=== PATIENT | female | born 1970 | race Hispanic/Latino ===

== ENCOUNTER 2018-12-12 09:41 | Emergency (ER) | payer OTHER ==
[2018-12-12] MEDS ORDERED: HYDROCODONE/APAP 5/325 MG TAB ONE ×2 (10:29→11:16)
[2018-12-12] MEDS ORDERED: TETANUS & DIPHTHERIA TOX,ADULT 0.5 ML VIAL ONE (10:42)
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
[2018-12-12] MEDS ORDERED: BACITRACIN OINTMENT 15 GM TUBE TOP SCH (11:30)
== END 2018-12-12 11:57 | disposition home or self-care (01) ==
LOC: ER 09:41
DX: T23.252A Burn of second degree of left palm, initial encounter (principal); T31.0 Burns involving less than 10% of body surface; X03.8XXA Other exposure to controlled fire, not in building or structure, initial encounter; I10 Essential (primary) hypertension; F41.9 Anxiety disorder, unspecified; Z23 Encounter for immunization
CPT/HCPCS: 90714; 99283

== ENCOUNTER 2019-03-10 10:42 | Observation (INO) | payer OTHER ==
--- OUTSIDE RECORDS SUMMARY | 2019-03-10 10:47 | XMS REPORT ---
:1970 Author Organization [facility] Address [address] [place] [address] [address] [place] [address] Care Team Providers Name Role Phone Unavailable Unavailable Unavailable Problems This patient has no known problems. Allergies, Adverse Reactions, Alerts This patient has no known allergies or adverse reactions. Medications This patient has no known medications.
[2019-03-10] MEDS ORDERED: NA CHLORIDE 0.9% 1,000 ML ONE (12:20)
[2019-03-10] MEDS ORDERED: ONDANSETRON 4 MG/2 ML VIAL ONE (12:20)
[2019-03-10 12:32] LABS: Absolute Lymphocytes (CBC) 1.6 K/uL (0.7-4.9); Absolute Monocytes 0.4 K/uL (0.1-1.3); Absolute Neutrophil 3.9 K/uL (1.8-8.0); Basophils % 1.1 % (0-1.3); Eosinophils % 1.4 % (0-4.4); Hematocrit 45.2 % (36.0-45.0); Lymphocytes % 25.9 % (15.3-44.8); MPV 8.5 fL (7.6-11.3); Monocytes % 6.8 % (3.3-12.3)
[2019-03-10 12:33] LABS: Protime INR 1.11
--- NOTE | 2019-03-10 12:41 | RAD REPORT ---
EXAM DESCRIPTION: RAD - Chest Single View - 03/10/2019 12:28 pm CLINICAL HISTORY: Chest pain COMPARISON: None. TECHNIQUE: AP portable chest image was obtained 1226 hours . FINDINGS: Lung volumes are low. No focal lung parenchymal process. No failure or volume overload. He art and vasculature are normal. No measurable pleural effusion and no pneumothorax. No acute bony abn ormality seen. No acute aortic findings suspected. IMPRESSION: No acute cardiopulmonary process.
[2019-03-10 12:46] LABS: ALT/SGPT 92 U/L (12-78); AST/SGOT 61 U/L (15-37); Albumin 4.2 g/dL (3.4-5.0); Alkaline Phosphatase 59 U/L (45-117); BUN Blood Urea Nitrogen 7 mg/dL (7-18); Bicarbonate 28 mmol/L (21-32); Bilirubin Direct 0.2 mg/dL (0-0.2); Bilirubin Total 0.8 mg/dL (0.2-1.0); Glucose Level 100 mg/dL (74-106); NT PRO-BNP 175 pg/mL (<125); Potassium 3.4 mmol/L (3.5-5.1); Sodium Level 138 mmol/L (136-145); Troponin (Emerg Dept Use Only) < 0.02 ng/mL (0.0-0.045)
--- NOTE | 2019-03-10 12:54 | RAD REPORT ---
EXAM DESCRIPTION: CT - Head Brain Wo Cont - 03/10/2019 12:44 pm CLINICAL HISTORY: Nausea, vomiting, headache COMPARISON: None. TECHNIQUE: Axial 5 mm thick images of the head were obtained without IV contrast. All CT scans are performed using dose optimization technique as appropriate and may include automated exposure control or mA/KV adjustment according to patient size. FINDINGS: No intracranial hemorrhage, mass, edema or shift of mid-line structures. No acute infarcti on changes seen. No abnormal extra-axial fluid collections. Ventricles are normal. Mastoid air cells are clear. Minimal mucosal thickening seen in a partially imaged sphenoid sinus and there minimal focus of mucosal thickening in the anterior right ethmoid air cells. Frontal sinuses a re not pneumatized. No acute bony findings. IMPRESSION: Negative non-contrast CT head examination for acute or significant intracranial finding. Minimal mucosal thickening changes in the sinuses as detailed. No air-fluid levels in the visualized paranasal sinuses.
--- NOTE | 2019-03-10 14:00 | ER ---
Nurse's Notes [facility] Name: Shaista Cottrell Age: 49 yrs Sex: Female : 1970 Arrival Date: 03/10/2019 Time: 10:46 Bed 20 Private MD: Dread Hampton S Diagnosis: Chest pain, unspecified;Vomiting;Diarrhea, unspecified Presentation: 03/10 11:14 Presenting complaint: Patient states: i haven't eaten or drink anything for 4 days; hj reports vomiting and started having diarrhea today; Friday i started headache and nasal pressure and cough; denies fever;. Transition of care: patient was not received from another setting of care. Onset of symptoms was March 10, 2019. Risk Assessment: Do you want to hurt yourself or someone else? Patient reports no desire to harm self or others. Initial Sepsis Screen: Does the patient meet any 2 criteria? No. Patient's initial sepsis screen is negative. Does the patient have a suspected source of infection? No. Patient's initial sepsis screen is negative. 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 - Social history:: Smoking status: . - Ebola Screening: : Patient denies travel to an Ebola-affected area in the 21 days before illness onset. Screenin:58 Abuse screen: Denies threats or abuse. Nutritional screening: No deficits noted. tw2 Tuberculosis screening: No symptoms or risk factors identified. Fall Risk None identified. Assessment: 12:14 General: Appears in no apparent distress. Behavior is calm, cooperative, appropriate tw2 for age. Pain: Complains of pain in abdomen and headache. Neuro: Level of Consciousness is awake, alert, obeys commands, Oriented to person, place, time, situation. Cardiovascular: Heart tones S1 S2 Patient's skin is warm and dry. Respiratory: Airway is patent Respiratory effort is even, unlabored, Respiratory pattern is regular, symmetrical, Breath sounds are clear bilaterally. GI: Abdomen is flat, Bowel sounds present X 4 quads. Reports diarrhea, intolerance of fluids, intolerance of food, nausea, vomiting. : No signs and/or symptoms were reported regarding the genitourinary system. EENT: No signs and/or symptoms were reported regarding the EENT system. Derm: No signs and/or symptoms reported regarding the dermatologic system. Musculoskeletal: Range of motion: intact in all extremities. 12:46 Reassessment: Patient appears in no apparent distress at this time. No changes from tw2 previously documented assessment. Patient and/or family updated on plan of care and expected duration. Pain level reassessed. Patient is alert, oriented x 3, equal unlabored respirations, skin warm/dry/pink. pt back from CT at this time. 13:50 Reassessment: Patient appears in no apparent distress at this time. No changes from tw2 previously documented assessment. Patient and/or family updated on plan of care and expected duration. Pain level reassessed. Patient is alert, oriented x 3, equal unlabored respirations, skin warm/dry/pink. 15:06 Reassessment: Patient appears in no apparent distress at this time. No changes from tw2 previously documented assessment. Patient and/or family updated on plan of care and expected duration. Pain level reassessed. Patient is alert, oriented x 3, equal unlabored respirations, skin warm/dry/pink. 15:49 Reassessment: Patient appears in no apparent distress at this time. No changes from tw2 previously documented assessment. Patient and/or family updated on plan of care and expected duration. Pain level reassessed. Patient is alert, oriented x 3, equal unlabored respirations, skin warm/dry/pink. Vital Signs: 11:17 BP 141 / 94; Pulse 56; Resp 18; Temp 97.8(TE); Pulse Ox 99% on R/A; Weight 72.57 kg; hj Height 5 ft. 0 in. (152.40 cm); Pain 5/10; 12:46 BP 146 / 73; Pulse 53; Resp 18; Pulse Ox 99% on R/A; tw2 13:50 BP 125 / 69; Pulse 44; Resp 17; Pulse Ox 100% on R/A; tw2 15:03 BP 141 / 75; Pulse 53; Resp 17; Pulse Ox 100% on R/A; tw2 15:47 BP 127 / 67; Pulse 58; Resp 17; Pulse Ox 98% on R/A; tw2 11:17 Body Mass Index 31.25 (72.57 kg, 152.40 cm) ED Course: 10:46 Patient arrived in ED. rg4 10:47 Dread Hampton MD is Private Physician. rg4 11:16 Triage completed. hj 11:17 Arm band placed on left wrist. hj 11:19 EKG done, by wafer fab technician. dt2 11:43 Fausto Slaughter PA is PHCP. jm 11:44 Alli Joiner MD is Attending Physician. jmm 11:44 Bed in low position. Call light in reach. monitoring coordinator on. Pulse ox on. NIBP on. tw2 11:58 Leilani Nguyen, RN is Primary Nurse. tw2 12:10 Inserted saline lock: 22 gauge in right antecubital area, using aseptic technique. tw2 Blood collected. 12:33 XRAY Chest (1 view) In Process Unspecified. EDMS 12:47 CT Head Brain wo Cont In Process Unspecified. EDMS 13:59 Norbert Nick DO is Hospitalizing Provider. [facility] 15:07 Awaiting: unsuccessful attempt to give report to floor nurse at this time. tw2 15:08 No provider procedures requiring assistance completed. Patient admitted, IV remains in tw2 place. 15:38 Awaiting: unsuccessful attempt to call report again at this time. tw2 Administered Medications: 12:11 Drug: Zofran 4 mg Route: IVP; Site: right antecubital; tw2 13:16 Follow up: Response: No adverse reaction; Nausea is decreased tw2 12:13 Drug: NS 0.9% 1000 ml Route: IV; Rate: 1 bolus; Site: right antecubital; tw2 13:28 Follow up: Response: No adverse reaction; IV Status: Completed infusion; IV Intake: tw2 1000ml 14:15 Drug: Aspirin Chewable Tablet 324 mg Route: PO; tw2 15:23 Follow up: Response: No adverse reaction tw2 Intake: 13:28 IV: 1000ml; Total: 1000ml. tw2 Outcome: 14:00 Decision to Hospitalize by Provider. jmm 15:49 Admitted to Med/surg accompanied by tech, via wheelchair, room 232, Report called to tw2 barry dee 15:49 Condition: stable 15:58 Patient left the ED. tw2 Signatures: Dispatcher [employer] EDMS Fausto Slaughter, Ramu Hugo RN RN Leilani Brown RN RN tw2 Cheri Bradley 4 Imelda Robles dt2 Corrections: (The following items were deleted from the chart) 11:19 11:17 Pulse 56bpm; Resp 18bpm; Pulse Ox 99% RA; Temp 97.8F Temporal; 72.57 kg; Height 5 hj ft. 0 in.; BMI: 31.2; Pain 5/10; hj
--- NOTE | 2019-03-10 14:01 | EDPHYS ---
Physician Documentation [facility] Name: Shaista Cottrell Age: 49 yrs Sex: Female : 1970 Arrival Date: 03/10/2019 Time: 10:46 Bed 20 Private MD: Dread Hampton S ED Physician Alli Joiner HPI: 03/10 11:55 This 49 yrs old Female presents to ER via Ambulatory with complaints of jmm Vomiting, Headache, Dizziness, Chest Pain. 11:55 The patient presents to the emergency department with nausea, vomiting, diarrhea, jmm abdominal pain. Onset: The symptoms/episode began/occurred 1 day(s) ago. Possible causes: unknown. Associated signs and symptoms: Pertinent positives: abdominal pain, chest pain. This is a 49 year old female with a history of htn that presents to the ED with complaints of chest pain beginning yesterday. Pain is episodic and last for approx 2 to 3 minutes at a time. Patient denies shortness of breath. patient also complains of sinus headache. Denies fever, denies chills. . 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 - Social history:: Smoking status: . - Ebola Screening: : Patient denies travel to an Ebola-affected area in the 21 days before illness onset. ROS: 11:55 Constitutional: Negative for fever, chills, and weight loss. jmm 11:55 Cardiovascular: Positive for chest pain. 11:55 Abdomen/GI: Positive for abdominal pain, nausea and vomiting, diarrhea. 11:55 Neuro: Positive for headache. 11:55 All other systems are negative. Exam: 11:55 Constitutional: This is a well developed, well nourished patient who is awake, alert, jmm and in no acute distress. Head/Face: atraumatic. Eyes: EOMI, no conjunctival erythema appreciated ENT: Moist Mucus Membranes Neck: Trachea midline, Supple Chest/axilla: Normal chest wall appearance and motion. Cardiovascular: Regular rate and rhythm. No edema appreciated Respiratory: Normal respirations, no respiratory distress appreciated Abdomen/GI: Non distended, soft Back: Normal ROM Skin: General appearance color normal MS/ Extremity: Moves all extremities, no obvious deformities appreciated, no edema noted to the lower extremities Neuro: Awake and alert, normal gait Psych: Behavior is normal, Mood is normal, Patient is cooperative and pleasant 11:55 ECG was reviewed by the Attending Physician. 11:55 Abdomen/GI: Bowel sounds: normal, Palpation: abdomen is soft and non-tender, in all quadrants. Vital Signs: 11:17 BP 141 / 94; Pulse 56; Resp 18; Temp 97.8(TE); Pulse Ox 99% on R/A; Weight 72.57 kg; hj Height 5 ft. 0 in. (152.40 cm); Pain 5/10; 12:46 BP 146 / 73; Pulse 53; Resp 18; Pulse Ox 99% on R/A; tw2 13:50 BP 125 / 69; Pulse 44; Resp 17; Pulse Ox 100% on R/A; tw2 15:03 BP 141 / 75; Pulse 53; Resp 17; Pulse Ox 100% on R/A; tw2 15:47 BP 127 / 67; Pulse 58; Resp 17; Pulse Ox 98% on R/A; tw2 11:17 Body Mass Index 31.25 (72.57 kg, 152.40 cm) MDM: 11:55 Patient medically screened. [facility] 13:58 Data reviewed: vital signs, nurses notes. Counseling: I had a detailed discussion with [facility] the patient and/or guardian regarding: the historical points, exam findings, and any diagnostic results supporting the discharge/admit diagnosis, lab results, radiology results, the need for further work-up and treatment in the hospital. ED course: Patient denies known ekg abnormalities. I discussed the patient with Dr. Nick whom accepted admission. . 03/10 12:01 Order name: Basic Metabolic Panel; Complete Time: 12:53 [facility] 03/10 12:01 Order name: CBC with Diff; Complete Time: 12:53 [facility] 03/10 12:01 Order name: LFT's; Complete Time: 12:53 [facility] 03/10 12:01 Order name: Magnesium; Complete Time: 12:53 [facility] 03/10 12:01 Order name: NT PRO-BNP; Complete Time: 12:53 [facility] 03/10 12:01 Order name: PT-INR; Complete Time: 12:53 [facility] 03/10 10:54 Order name: EKG; Complete Time: 10:57 ss 03/10 10:54 Order name: EKG - Nurse/Tech; Complete Time: 11:10 ss 12 12:01 Order name: Troponin (emerg Dept Use Only); Complete Time: 12:53 [facility] 03/10 12:01 Order name: XRAY Chest (1 view); Complete Time: 12:53 [facility] 03/10 12:01 Order name: CT Head Brain wo Cont; Complete Time: 12:58 [facility] 03/10 12:01 Order name: Cardiac monitoring; Complete Time: 12:04 [facility] 03/10 12:01 Order name: IV Saline Lock; Complete Time: 12:13 [facility] 03/10 12:01 Order name: Labs collected and sent; Complete Time: 12:13 [facility] 03/10 12:01 Order name: O2 Per Protocol; Complete Time: 12:04 [facility] 03/10 12:01 Order name: O2 Sat Monitoring; Complete Time: 12:04 jm EC:55 Rate is 54 beats/min. Rhythm is regular. QRS Arnot is Normal. RI interval is normal. QRS jmm interval is normal. QT interval is normal. No Q waves. T waves are Inverted in leads V1, V2, V3, V4, V5, V6. T waves are Flattened in lead aVF. No ST changes noted. Administered Medications: 12:11 Drug: Zofran 4 mg Route: IVP; Site: right antecubital; tw2 13:16 Follow up: Response: No adverse reaction; Nausea is decreased tw2 12:13 Drug: NS 0.9% 1000 ml Route: IV; Rate: 1 bolus; Site: right antecubital; tw2 13:28 Follow up: Response: No adverse reaction; IV Status: Completed infusion; IV Intake: tw2 1000ml 14:15 Drug: Aspirin Chewable Tablet 324 mg Route: PO; tw2 15:23 Follow up: Response: No adverse reaction tw2 Disposition: 19:02 Co-signature as Attending Physician, Alli Joiner MD Available for consultation at [facility] all times. . Chart complete. Chart complete. Disposition: 03/10/19 14:00 Hospitalization ordered by Norbert Nick for Observation. Preliminary diagnosis are Chest pain, unspecified, Vomiting, Diarrhea, unspecified. - Bed requested for Telemetry/MedSurg (observation). - Status is Observation. tw2 - Condition is Stable. - Problem is new. - Symptoms are unchanged. UTI on Admission? No Signatures: Dispatcher [employer] EDMS Yaritza Cleaning Joel, PA PA jmm Smirch, Shelby, RN RN ss Ramu Nails, RN RN hj Leilani Nguyen, YOUSIF RN tw2 Alli Joiner MD MD ps1 Corrections: (The following items were deleted from the chart) 14:43 14:00 Hospitalization Ordered by Norbert Nick DO for Observation. Preliminary bd diagnosis is Chest pain, unspecified; Vomiting; Diarrhea, unspecified. Bed requested for Telemetry/MedSurg (observation). Status is Observation. Condition is Stable. Problem is new. Symptoms are unchanged. UTI on Admission? No. michael 15:58 14:43 03/10/2019 14:00 Hospitalization Ordered by Norbert Nick DO for Observation. tw2 Preliminary diagnosis is Chest pain, unspecified; Vomiting; Diarrhea, unspecified. Bed requested for Telemetry/MedSurg (observation). Status is Observation. Condition is Stable. Problem is new. Symptoms are unchanged. UTI on Admission? No. bd
--- NOTE | 2019-03-10 14:04 | EKG ---
Test Date: 2019-03-10 Test Time: 11:10:16 Studio Musician: MIGUELITO MEASUREMENT RESULTS: Intervals: Rate: 54 NV: 156 QRSD: 80 QT: 430 QTc: 407 [place]: P: 21 NV: 156 QRS: -17 T: 3 INTERPRETIVE STATEMENTS: Sinus bradycardia Low voltage QRS T wave abnormality, consider anterior ischemia Abnormal ECG No previous ECG available for comparison Electronically Signed On 03-10-19 14:03:58 CDT by Jag Melendrez
[2019-03-10] MEDS ORDERED: ASPIRIN 81 MG CHEWABLE TABLET ONE (14:16)
--- NOTE | 2019-03-10 14:39 | P.HP ---
Certification for Inpatient Patient admitted to: Observation With expected LOS: <2 Midnights Patient will require the following post-hospital care: None Practitioner: I am a practitioner with admitting privileges, knowledge of patient current condition, hospital course, and medical plan of care. Services: Services provided to patient in accordance with Admission requirements found in Title 42 Section 412.3 of the Code of Federal Regulations Patient History Date of Service: 03/10/19 Primary Care Provider: Dr. Hampton Reason for admission: Nausea, vomiting, chest pain History of Present Illness: 49-year-old female presented to the emergency room with increasing nausea, vomiting and chest pain. Patient reports this all started on Friday when she start to have nausea and vomiting. She was not able to keep anything down. She reported some substernal chest pain. Pain comes and goes. It was associated with increased belching, headaches. No radiation was noted. She reports burning sensation and tightening to the mid chest area. She has not been able to take good oral intake in that time. Patient has hypertension and has not been able to take her medications over the last 2 days. She came to the ER for further evaluation. In the ER patient was evaluated. Initial troponin unremarkable. EKG showed some inverted T weighs. Hemoglobin 15.6, white count 6.1, sodium 138, potassium 3.4, creatinine 0.7 with a GFR of 88. Glucose 100. CT unremarkable except for some thickening of the sinus areas. Chest x-ray unremarkable. LFTs were elevated with an AST of 61, ALT of 92. Patient reported improvement with IV fluids. Patient without chest pain at this time. Patient was admitted for observation. Patient with heart score of 3. Patient with history of hypertension, rosacea, anxiety, and alcohol abuse. She admits taking 1-2 cups of wine daily. Family history of hypertension, diabetes. Home medications list reviewed: Yes - Past Medical/Surgical History Diabetic: No -: Hypertension -: Anxiety -: Rosacea -: Alcohol abuse -: Hysterectomy -: Tonsillectomy Psychosocial/ Personal History: Patient is single. She has children. She works at a local [employer]. - Family History Mother -: Heart disease, Diabetes - Social History Smoking Status: Never smoker Alcohol use: Yes CD- Drugs: No Caffeine use: No Place of Residence: Home Review of Systems General: As per HPI Eyes: Unremarkable ENT: As per HPI (History of sinus headaches) Respiratory: Unremarkable Cardiovascular: Chest Pain, As per HPI Gastrointestinal: Nausea, Vomiting, As per HPI Genitourinary: Unremarkable Musculoskeletal: Unremarkable Integumentary: Unremarkable Neurological: Unremarkable Lymphatics: Unremarkable Physical Examination - Physical Exam General: Alert, In no apparent distress, Oriented x3, Cooperative HEENT: Atraumatic, Normocephalic, PERRLA, Other (Dry mucous membranes) Neck: Supple, No Thyromegaly Respiratory: Clear to auscultation bilaterally, Normal air movement Cardiovascular: Normal pulses, Regular rate/rhythm Gastrointestinal: Normal bowel sounds, Soft and benign, Non-distended, No ascites, No tenderness, No masses, No rebound, No guarding Musculoskeletal: No erythema, No tenderness, No warmth Integumentary: No tenderness/swelling, No erythema, No warmth, No cyanosis Neurological: Normal speech, Normal strength at 5/5 x4 extr, Normal tone, Normal affect - Studies Laboratory Data (last 24 hrs) 03/10/19 12:10: PT 13.0 H, INR 1.11 03/10/19 12:10: WBC 6.1, Hgb 15.6 H, Hct 45.2 H, Plt Count 253 03/10/19 12:10: Sodium 138, Potassium 3.4 L, BUN 7, Creatinine 0.71, Glucose 100 , Magnesium 2.0, Total Bilirubin 0.8, AST 61 H, ALT 92 H, Alkaline Phosphatase 59 Assessment and Plan - Plan Impression: Nausea, vomiting with chest pain likely related to viral gastroenteritis with GERD and mild dehydration Hypertension, uncontrolled Alcohol abuse Elevated liver function likely related to alcohol abuse Anxiety Hypokalemia related to dehydration and nausea Plan: Nausea, vomiting with chest pain likely related to viral gastroenteritis with GERD and mild dehydration: Patient will be admitted for observation. Heart score calculated-3. Doubt cardiac related. Likely more GI related with possible gastritis. Will continue IV fluids. Will monitor telemetry and cardiac enzymes. Will obtain echocardiogram. Will start DVT prophylaxis- Lovenox. Will also start Pepcid twice daily. Will provide aspirin. Will hold off on statin medication due to elevated liver function tests. Will continue to reassess. Patient should have cardiac evaluation as an outpatient once gastroenteritis and dehydration has resolved. This can be done as an outpatient. Possible discharge later today if echo and cardiac enzymes unremarkable. Hypertension, uncontrolled: Blood pressure on controlled as she has not been able take her medications over the last 2 days. Will restart medication and monitor closely. Alcohol abuse: Patient admits wanted to cups of wine daily. Encourage cessation. Risks of addressed Elevated liver function likely related to alcohol abuse: Will monitor closely. Encourage alcohol cessation. This can be followed up as an outpatient. Will obtain hepatitis panel. Anxiety: Continue with home medication. Hypokalemia related to dehydration and nausea: Will replace electrolytes. Continue IV fluids. Discharge Plan: Home Plan to discharge in: 24 Hours - Advance Directives Does patient have a Living Will: No Does patient have a Durable POA for Healthcare: No - Code Status/Comfort Care Code Status Assessed: Yes (Patient full code.) Time Spent Managing Pts Care (In Minutes): 55
[2019-03-10] MEDS ORDERED: ONDANSETRON 4 MG/2 ML VIAL IV PRN (16:25)
[2019-03-10] MEDS ORDERED: clonazePAM 0.5 MG TAB PO PRN (16:25)
[2019-03-10] MEDS ORDERED: TRAMADOL HCL 50 MG TAB PO PRN (16:25)
[2019-03-10] MEDS: NA CHLORIDE 0.9% 1,000 ML IV SCH (17:33)
[2019-03-10] MEDS: ENOXAPARIN 40 MG/0.4 ML SQ SCH (17:33)
[2019-03-10] MEDS: ACETAMINOPHEN 500 MG TAB PO PRN (17:34)
[2019-03-10] MEDS: FAMOTIDINE 20 MG TAB PO SCH (17:34)
[2019-03-10] MEDS ORDERED: PNEUMOCOCCAL VACCINE 0.5 ML IMVAC ONE (18:00)
[2019-03-10 18:23] LABS: CKMB Creatine Kinase MB < 1.0 ng/mL (0.3-3.6); Creatine Phosphokinase 123 U/L (26-192); Troponin I < 0.02 ng/mL (0.0-0.045)
[2019-03-10 19:42] LABS: Urine Appearance CLEAR; Urine Bilirubin NEGATIVE (NEG); Urine Blood NEGATIVE (NEG); Urine Color YELLOW; Urine Glucose NEGATIVE (NEG); Urine Protein NEGATIVE (NEG)
[2019-03-10 19:46] LABS: Urine Microscopic Reflex NO UMIC
[2019-03-11] MEDS: NA CHLORIDE 0.9% 1,000 ML IV SCH (01:51)
[2019-03-11 03:01] LABS: CKMB Creatine Kinase MB < 1.0 ng/mL (0.3-3.6); Creatine Phosphokinase 102 U/L (26-192); Troponin I 0.02 ng/mL (0.0-0.045)
[2019-03-11] MEDS: ACETAMINOPHEN 500 MG TAB PO PRN (03:50)
[2019-03-11] MEDS ORDERED: METOPROLOL XL 50 MG TAB PO SCH (06:00)
[2019-03-11 06:05] LABS: Absolute Lymphocytes (CBC) 1.2 K/uL (0.7-4.9); Absolute Monocytes 0.3 K/uL (0.1-1.3); Absolute Neutrophil 2.1 K/uL (1.8-8.0); Basophils % 1.1 % (0-1.3); Hematocrit 39.9 % (36.0-45.0); Lymphocytes % 31.1 % (15.3-44.8); MPV 8.9 fL (7.6-11.3); RBC Red Blood Cell Count 3.85 M/uL (3.86-4.86)
[2019-03-11 08:16] LABS: ALT/SGPT 78 U/L (12-78); AST/SGOT 60 U/L (15-37); Albumin 3.3 g/dL (3.4-5.0); Alkaline Phosphatase 52 U/L (45-117); BUN Blood Urea Nitrogen 8 mg/dL (7-18); Bicarbonate 24 mmol/L (21-32); Bilirubin Total 0.7 mg/dL (0.2-1.0); Glucose Level 103 mg/dL (74-106); HDL Cholesterol 46 mg/dL (40-60); LDL Cholesterol, Calculated 123 (<130); Magnesium 1.8 mg/dL (1.8-2.4); Potassium 3.6 mmol/L (3.5-5.1); Protein, Total 6.5 g/dL (6.4-8.2); Sodium Level 142 mmol/L (136-145)
[2019-03-11] MEDS ORDERED: MAGNESIUM SULFATE 1 gm IVPB 1 GM/100 ML BAG IV ONE (08:35)
--- NOTE | 2019-03-11 08:42 | P.DS ---
Admission Date: 03/10/19 Discharge Date: 03/11/19 Primary Care Provider: Dr. Hampton Disposition: ROUTINE DISCHARGE Discharge Condition: GOOD Reason for Admission: Nausea, vomiting, chest pain Consultations: none Procedures: ECHO: Obtained. Results to follow CT Scan: FINDINGS: No intracranial hemorrhage, mass, edema or shift of mid-line structures. No acute infarction changes seen. No abnormal extra-axial fluid collections. Ventricles are normal. Mastoid air cells are clear. Minimal mucosal thickening seen in a partially imaged sphenoid sinus and there minimal focus of mucosal thickening in the anterior right ethmoid air cells. Frontal sinuses are not pneumatized. No acute bony findings. IMPRESSION: Negative non-contrast CT head examination for acute or significant intracranial finding. Minimal mucosal thickening changes in the sinuses as detailed. No air-fluid levels in the visualized paranasal sinuses. Medical Problem List: Nausea, vomiting with chest pain likely related to viral gastroenteritis with GERD and mild dehydration Hypertension, uncontrolled, with bradycardia Alcohol abuse Elevated liver function likely related to alcohol abuse Anxiety Hypokalemia related to dehydration and nausea Chronic allergic rhinitis Brief History of Present Illness: 49-year-old female presented to the emergency room with increasing nausea, vomiting and chest pain. Patient reports this all started on Friday when she start to have nausea and vomiting. She was not able to keep anything down. She reported some substernal chest pain. Pain comes and goes. It was associated with increased belching, headaches. No radiation was noted. She reports burning sensation and tightening to the mid chest area. She has not been able to take good oral intake in that time. Patient has hypertension and has not been able to take her medications over the last 2 days. She came to the ER for further evaluation. In the ER patient was evaluated. Initial troponin unremarkable. EKG showed some inverted T weighs. Hemoglobin 15.6, white count 6.1, sodium 138, potassium 3.4, creatinine 0.7 with a GFR of 88. Glucose 100. CT unremarkable except for some thickening of the sinus areas. Chest x-ray unremarkable. LFTs were elevated with an AST of 61, ALT of 92. Patient reported improvement with IV fluids. Patient without chest pain at this time. Patient was admitted for observation. Patient with heart score of 3. Patient with history of hypertension, rosacea, anxiety, and alcohol abuse. She admits taking 1-2 cups of wine daily. Family history of hypertension, diabetes. Hospital Course: Patient presented with nausea, vomiting and chest pain. This is likely related to viral gastritis with GERD and dehydration. Patient responded to IV fluids and Pepcid appropriately. Cardiac enzymes unremarkable x3. Echocardiogram obtained. At discharge she is without any significant chest pain. At discharge will recommend that she continue with Pepcid 20 mg 1 pill twice daily. She is to continue with a GERD diet. Lifestyle modification education provided. Patient has been educated to decrease her alcohol use as this may be contributing to her problem. Will recommend that she follow up with cardiology as an outpatient for cardiac stress test evaluation due to her risk factors. Will also recommend a GI evaluation as an outpatient as the patient will likely require EGD for further evaluation. Patient with hypertension. Blood pressures were on controlled upon admission. Blood pressure better controlled. She did have some bradycardia with medication. Medications have been adjusted. Will recommend to discontinue metoprolol in place of metoprolol XL at a lower dose. At discharge she will continue with metoprolol XL 25 mg daily, lisinopril-HCTZ 20 mg/12.5 mg 2 pills daily and aspirin 81 mg daily. She is to monitor her blood pressure and heart rate daily. Recommend to maintain blood pressures less 150/80 and heart rate between 60 and 100. Further adjustment in her medication can be done by her PCP. Patient may need to increase her intake of potassium since she is taking hydrochlorothiazide. Recommend to recheck lab-BMP in 1 week. Patient with elevated liver function likely related to alcohol use. This improved with hydration. Patient has been educated on decrease of her alcohol intake. Hepatitis panel obtained. This can be followed up as an outpatient. Patient with underlying anxiety. This appears stable. At discharge she will continue with her medication of Lexapro 10 mg daily and clonazepam 0.5 mg 1 pill twice daily as needed. Recommend to follow up with a PCP to further address. Patient with hyperlipidemia. Lab reviewed. Will recommend lifestyle modification education. Will also recommend to start fish oral 1 pill twice daily. Recommend follow up with her PCP to further monitor and address. Patient with chronic allergic rhinitis. CT of the head showed some thickening of the sinus membranes. Will recommend to start Flonase 1 spray per nostril twice daily. If this persists will recommend follow up with ENT as an outpatient to further address. Vital Signs/Physical Exam: Temp Pulse Resp BP Pulse Ox 97.9 F 50 16 141/85 H 98 03/11/19 04:00 03/11/19 04:00 03/11/19 04:00 03/11/19 04:00 03/11/19 04:00 General: Alert, In no apparent distress, Oriented x3, Cooperative HEENT: Atraumatic Neck: Supple Respiratory: Clear to auscultation bilaterally, Normal air movement Cardiovascular: Normal pulses, Regular rate/rhythm Gastrointestinal: Normal bowel sounds, Soft and benign, Non-distended, No tenderness, No masses, No rebound, No guarding Musculoskeletal: No erythema, No tenderness, No warmth Integumentary: No tenderness/swelling, No erythema, No warmth, No cyanosis Neurological: Normal speech, Normal strength at 5/5 x4 extr, Normal tone, Normal affect Laboratory Data at Discharge: WBC 3.8 K/uL (4.3-10.9) L D 03/11/19 05:41 Hgb 14.2 g/dL (12.0-15.0) 03/11/19 05:41 Hct 39.9 % (36.0-45.0) 03/11/19 05:41 Plt Count 194 K/uL (152-406) D 03/11/19 05:41 PT 13.0 SECONDS (9.5-12.5) H 03/10/19 12:10 INR 1.11 03/10/19 12:10 Sodium 142 mmol/L (136-145) 03/11/19 05:41 Potassium 3.6 mmol/L (3.5-5.1) 03/11/19 05:41 BUN 8 mg/dL (7-18) 03/11/19 05:41 Creatinine 0.63 mg/dL (0.55-1.3) 03/11/19 05:41 Glucose 103 mg/dL (74-106) 03/11/19 05:41 Magnesium 1.8 mg/dL (1.8-2.4) 03/11/19 05:41 Total Bilirubin 0.7 mg/dL (0.2-1.0) 03/11/19 05:41 AST 60 U/L (15-37) H 03/11/19 05:41 ALT 78 U/L (12-78) 03/11/19 05:41 Alkaline Phosphatase 52 U/L (45-117) 03/11/19 05:41 Troponin I 0.02 ng/mL (0.0-0.045) 03/11/19 02:20 Triglycerides 205 mg/dL (<150) H 03/11/19 05:41 Cholesterol 210 mg/dL (<200) H 03/11/19 05:41 HDL Cholesterol 46 mg/dL (40-60) 03/11/19 05:41 Cholesterol/HDL Ratio 4.57 03/11/19 05:41 Home Medications: Escitalopram [Lexapro*] 10 mg PO DAILY 03/10/19 Minocycline HCl 50 mg PO DAILY 03/10/19 clonazePAM [Clonazepam] 0.5 mg PO BID 03/10/19 Aspirin [Aspirin EC 81 MG] 81 mg PO DAILY #30 tablet. 03/11/19 Docosahexanoic AC/Epa [Fish Oil 1,000 MG CAP] 1 cap PO BID #60 cap 03/11/19 Famotidine [Pepcid] 20 mg PO BID #60 tab 03/11/19 Fluticasone [Flonase 50mcg Nasal [place]] 1 sprays NS BID #1 btl 03/11/19 Lisinopril/Hydrochlorothiazide [Lisinopril-Hctz 20-12.5 mg Tab] 2 tab PO DAILY # 60 tablet 03/11/19 Metoprolol Succinate [Toprol Xl*] 25 mg PO [id number] #30 tab 03/11/19 New Medications: Aspirin [Aspirin EC 81 MG] 81 mg PO DAILY #30 tablet. Docstuarthexanoic AC/Epa [Fish Oil 1,000 MG CAP] 1 cap PO BID #60 cap Famotidine [Pepcid] 20 mg PO BID #60 tab Fluticasone [Flonase 50mcg Nasal [place]] 1 sprays NS BID #1 btl Lisinopril/Hydrochlorothiazide [Lisinopril-Hctz 20-12.5 mg Tab] 2 tab PO DAILY # 60 tablet Metoprolol Succinate [Toprol Xl*] 25 mg PO [id number] #30 tab Patient Discharge Instructions: 1. Recommend to follow up her PCP in 1 week to follow up this hospitalization. 2. Patient presented with nausea, vomiting and chest pain. This is likely related to viral gastritis with GERD and dehydration. Patient responded to IV fluids and Pepcid appropriately. Cardiac enzymes unremarkable x3. Echocardiogram obtained. At discharge she is without any significant chest pain. At discharge will recommend that she continue with Pepcid 20 mg 1 pill twice daily. She is to continue with a GERD diet. Lifestyle modification education provided. Patient has been educated to decrease her alcohol use as this may be contributing to her problem. Will recommend that she follow up with cardiology as an outpatient for cardiac stress test evaluation due to her risk factors. Will also recommend a GI evaluation as an outpatient as the patient will likely require EGD for further evaluation. 3. Patient with hypertension. Blood pressures were on controlled upon admission. Blood pressure better controlled. She did have some bradycardia with medication. Medications have been adjusted. Will recommend to discontinue metoprolol in place of metoprolol XL at a lower dose. At discharge she will continue with metoprolol XL 25 mg daily, lisinopril-HCTZ 20 mg/12.5 mg 2 pills daily and aspirin 81 mg daily. She is to monitor her blood pressure and heart rate daily. Recommend to maintain blood pressures less 150/ 80 and heart rate between 60 and 100. Further adjustment in her medication can be done by her PCP. Patient may need to increase her intake of potassium since she is taking hydrochlorothiazide. Recommend to recheck lab-BMP in 1 week. 4. Patient with elevated liver function likely related to alcohol use. This improved with hydration. Patient has been educated on decrease of her alcohol intake. Hepatitis panel obtained. This can be followed up as an outpatient. 5. Patient with underlying anxiety. This appears stable. At discharge she will continue with her medication of Lexapro 10 mg daily and clonazepam 0.5 mg 1 pill twice daily as needed. Recommend to follow up with a PCP to further address. 6. Patient with hyperlipidemia. Lab reviewed. Will recommend lifestyle modification education. Will also recommend to start fish oral 1 pill twice daily. Recommend follow up with her PCP to further monitor and address. 7. Patient with chronic allergic rhinitis. CT of the head showed some thickening of the sinus membranes. Will recommend to start Flonase 1 spray per nostril twice daily. If this persists will recommend follow up with ENT as an outpatient to further address. Diet: AHA Activity: Ad columba Time spent managing pt's care (in minutes): 55
[2019-03-11] MEDS ORDERED: POTASSIUM 25 MEQ EFFERV TAB PO ONE (08:48)
[2019-03-11] MEDS ORDERED: CITALOPRAM 10 MG TABLET PO SCH (09:00)
[2019-03-11] MEDS ORDERED: ASPIRIN EC 81 MG TAB PO SCH (09:00)
[2019-03-11] MEDS ORDERED: hydroCHLOROthiazide 25 MG TAB PO SCH (09:00)
[2019-03-11] MEDS ORDERED: LISINOPRIL 20 MG TAB PO SCH ×2 (09:00)
[2019-03-11] MEDS: ENOXAPARIN 40 MG/0.4 ML SQ SCH (09:29)
[2019-03-11] MEDS: FAMOTIDINE 20 MG TAB PO SCH (09:30)
--- NOTE | 2019-03-11 11:35 | ECHO ---
HEIGHT: 5 ft 0 in WEIGHT: 157 lb 12.8 oz DATE OF STUDY: 12/09/[address]: Norbert Nick DO 2-DIMENSIONAL: YES M.MODE: YES DOPPLER: YES COLOR FLOW: YES TDS: PORTABLE: DEFINITY: BUBBLE STUDY: DIAGNOSIS: CHEST PAIN, HYPERTENSION CARDIAC HISTORY: CATHERIZATION: NO SURGERY: NO PROSTHETIC VALVE: NO PACEMAKER: NO MEASUREMENTS (cm) DIASTOLIC (NORMALS) SYSTOLIC (NORMALS) IVSd 1.0 (0.6-1.2) LA Diam 3.7 (1.9-4.0) LVEF 69% LVIDd 4.1 (3.5-5.7) LVIDs 2.5 (2.0-3.5) %FS 38% LVPWd 1.0 (0.6-1.2) Ao Diam 2.3 (2.0-3.7) 2 DIMENSIONAL ASSESSMENT: RIGHT ATRIUM: NORMAL LEFT ATRIUM: NORMAL RIGHT VENTRICLE: NORMAL LEFT VENTRICLE: NORMAL TRICUSPID VALVE: NORMAL MITRAL VALVE: NORMAL PULMONIC VALVE: NORMAL AORTIC VALVE: NORMAL PERICARDIAL EFFUSION: NONE AORTIC ROOT: NORMAL LEFT VENTRICULAR WALL MOTION: NORMAL DOPPLER/COLOR FLOW: NORMAL COMMENTS: NORMAL TWO DIMENSIONAL ECHOCARDIOGRAM WITH DOPPLER. NO WALL MOTION ABNORMALITY. NO EFFUSION. TECHNOLOGIST: MISTY DELAROSA
[2019-03-12] MEDS ORDERED: METOPROLOL XL 25 MG TAB PO SCH (06:00)
[2019-03-14 06:53] LABS: HBsAG Nonreactive (Nonreactive); Hepatitis A IgM Antibody Nonreactive
== END 2019-03-11 11:22 | disposition home or self-care (01) ==
LOC: ER 10:42 → ERHOLD 14:24 → 2ND 15:51
PROVIDERS: ADMIT Family Medicine; ATTEND Family Medicine
DX: E86.0 Dehydration (principal); E87.6 Hypokalemia; I10 Essential (primary) hypertension; K21.9 Gastro-esophageal reflux disease without esophagitis; R94.5 Abnormal results of liver function studies; R07.9 Chest pain, unspecified; R11.2 Nausea with vomiting, unspecified; J30.9 Allergic rhinitis, unspecified; E78.5 Hyperlipidemia, unspecified; F10.10 Alcohol abuse, uncomplicated; F41.9 Anxiety disorder, unspecified; Z79.899 Other long term (current) drug therapy
CPT/HCPCS: 36415; 70450; 71045; 80048; 80053; 80061; 80074; 80076; 81003; 82550; 82553; 83735; 83880; 84439; 84443; 84484; 85025; 85610; 93005; 93306; 96361; 96374; 99285; G0378; J1650; J2405; J3475; J7030

== ENCOUNTER 2022-06-04 07:36 | Emergency (ER) | payer OTHER ==
--- OUTSIDE RECORDS SUMMARY | 2022-06-04 07:42 | XMS REPORT | Continuity of Care Document ---
:1970 Author Organization [facility] [place] t Address [address] [place] [place] [address] Care Team Providers Name Role Phone Selma Nick DO Primary Care Physician SELMA NICK Attending Clinician Unavailable [id number] Attending Clinician Unavailable Selma Nick DO Attending Clinician SANTI LANE Attending Clinician Unavailable Santi Lane MD Attending Clinician Hakan Sears DO Attending Clinician Doctor Unassigned, [place] Attending Clinician Unavailable Mariel CARSON, Sendkush K.H. Attending Clinician ADDIE FLOYD.H. Attending Clinician Unavailable Payers Payer Name Policy Type Policy Number Effective Date Expiration Date Jermaine KAISERNA 2 [id number] 2022 00:00:00 Problems Condition Condition Condition Status Onset Resolution Last Treating Co mments Source Name Details Category Date Date Treatment Clinician Date Seasonal Seasonal Disease Active Kelse y allergic allergic 5-18 Seybol d rhinitis rhinitis 00:00: due to due to 00 pollen pollen Gastroesop Gastroesop Disease Active K elsey hageal hageal 5-18 [place] reflux reflux 00:00: disease disease 00 without without esophagiti esophagiti s s Rosacea, Rosacea, Disease Active Kelse y acne acne 5-18 Seybold 00:00: 00 Anxiety Anxiety Disease Active [place] 5-18 Seybold 00:00: 00 Class 1 Class 1 Disease Active [place] obesity obesity -18 Seybold due to due to 00:00: excess excess 00 calories calories without without serious serious comorbidit comorbidit y with y with body mass body mass index index (BMI) of (BMI) of 31.0 to 31.0 to 31.9 in 31.9 in adult adult History of History of Disease Active K higinio irregular irregular 5-18 Seyb old heartbeat heartbeat 00:00: 00 Cough due Cough due Disease Active Chad sey to HALEY to HALEY 18 [place]bold inhibitor inhibitor 00:00: 00 Primary Primary Disease Active [place] hypertensi hypertensi 5-18 Se ybold on on 00:00: 00 Obesity Obesity Disease Active [facility] (BMI (BMI 2-06 ity of 30-39.9) 30-39.9) 00:00: [place] [address] [facility] Branch Urticaria Urticaria Disease Active Uni vers 2-06 ity of 00:00: [place] [facility] Essential Essential Disease Active Uni vers hypertensi hypertensi 2-11 it y of on on 00:00: [place] [facility] Anxiety Anxiety Disease Active [facility] 2-11 ity of 00:00: [place] [facility] Panic Panic Disease Active [facility] attacks attacks 2-11 ity of 00:00: [place] [address] Medical Branch History of History of Disease Active K elsey uterine uterine 1-01 Seybold cancer cancer 00:00: 00 Allergies, Adverse Reactions, Alerts Allergy Allergy Status Severity Reaction(s) Onset Inactive Treating Comm ents Source Name Type Date Date Clinician NO KNOWN Drug Active Univers ALLERGIE Class ity of [facility] Social History Social Habit Start Date Stop Date Quantity Comments Source Exposure to Not sure [facility] of SARS-CoV-2 [place] [facility] (event) Branch Tobacco use and 2022-02-13 2022-02-13 Smokeless tobacco Ke mariza Neves exposure 00:00:00 00:00:00 non-user Alcohol intake 2022-02-13 2022-02-13 1.29 /d [place] albright 00:00:00 00:00:00 Education 2022-02-13 2022-02-13 16 [place] Neves 00:00:00 00:00:00 [birth year] [place] vargas 00:00:00 00:00:00 Smoking Status Start Date Stop Date Source Never smoked tobacco [place] bates Medications Ordered Filled Start Stop Current Ordering Indication Dosage Frequency Signature Comments Components Source Medication Medication Date Date Medication? Clinician (SIG) Name Name Losartan Yes [id number] 1{tbl} Take 1 K elsey Potassium-H 5-18 tablet by Sey bold CTZ 50-12.5 00:00: mouth MG oral 00 daily Tablet Minocycline Yes [id number] 100mg Take 1 [place] HCl 100 MG 5-18 capsule Seybol d oral 00:00: (100 mg Capsule 00 total) by mouth in the morning and 1 capsule (100 mg total) in the evening. Cetirizine Yes [id number] 10mg Take 1 K elsey HCl (ZyrTEC 5-18 capsule Seybo ld Allergy) 10 00:00: (10 mg MG oral 00 total) by Capsule mouth daily FLUTICASONE Yes [id number] 50ug Use 1 K elsey PROPIONATE, 5-18 spray (50 Sey bold NASAL, 50 00:00: mcg total) MCG/ACT 00 in each nasal nostril Suspension daily LISINOPRIL- 2021- No 1{tbl} Take 1 K elsey HCTZ 1-23 05-18 tablet by Seybold 10-12.5 MG 00:00: 00:00 mouth in oral Tablet 00 :00 the morning and 1 tablet in the evening. minocycline Yes [id number] 50mg Take 1 [facility] 50 mg 8-30 capsule by ity of capsule 00:00: mouth [place] 00 daily. Medical Branch lisinopriL- Yes [id number] 1{tbl} Take 1 [facility] hydrochloro 8-30 tablet by ity of thiazide 00:00: mouth 2 [place] 20-12.5 mg 00 (two) Medical per tablet times Branch daily. clonazePAM 2020-0 Yes [id number] .5mg Take 1 U nivers 0.5 mg 8-30 tablet by ity of tablet 00:00: mouth 2 [place] 00 (two) Medical times Branch daily. minocycline 2020-0 Yes [id number] 50mg Take 1 [facility] 50 mg 5-11 capsule by ity of capsule 00:00: mouth [place] 00 daily. Medical Branch minocycline 2020-0 Yes [id number] 50mg Take 1 [facility] 50 mg 5-11 capsule by ity of capsule 00:00: mouth [place] 00 daily. Medical Branch minocycline 2020-0 Yes [id number] 50mg Take 1 [facility] 50 mg 5-11 capsule by ity of capsule 00:00: mouth [place] 00 daily. Medical Branch minocycline 2020-0 Yes [id number] 50mg Take 1 [facility] 50 mg 5-11 capsule by ity of capsule 00:00: mouth [place] 00 daily. Medical Branch minocycline 2020-0 2021- No [id number] 50mg Take 1 [facility] 50 mg 5-11 08-30 capsule by ity of capsule 00:00: 00:00 mouth [place] 00 :00 daily. Medical Branch LISINOPRIL- 2020-0 Yes [id number] TAKE 1 Univers HYDROCHLORO 3-01 TABLET BY ity of THIAZIDE 00:00: MOUTH [place] 20-12.5 mg 00 TWICE A Medica l per tablet DAY Branch LISINOPRIL- 2020-0 Yes [id number] TAKE 1 Univers HYDROCHLORO 3-01 TABLET BY ity of THIAZIDE 00:00: MOUTH [place] 20-12.5 mg 00 TWICE A Medica l per tablet DAY Branch LISINOPRIL- 2020-0 Yes [id number] TAKE 1 Univers HYDROCHLORO 3-01 TABLET BY ity of THIAZIDE 00:00: MOUTH [place] 20-12.5 mg 00 TWICE A Medica l per tablet DAY Branch LISINOPRIL- 2020-0 Yes [id number] TAKE 1 Univers HYDROCHLORO 3-01 TABLET BY ity of THIAZIDE 00:00: MOUTH [place] 20-12.5 mg 00 TWICE A Medica l per tablet DAY Branch LISINOPRIL- 2020-0 Yes [id number] TAKE 1 Univers HYDROCHLORO 3-01 TABLET BY ity of THIAZIDE 00:00: MOUTH [place] 20-12.5 mg 00 TWICE A Medica l per tablet DAY Branch LISINOPRIL- 2020-0 Yes [id number] TAKE 1 Univers HYDROCHLORO 3-01 TABLET BY ity of THIAZIDE 00:00: MOUTH [place] 20-12.5 mg 00 TWICE A Medica l per tablet DAY Branch LISINOPRIL- 0 2020- No [id number] TAKE 1 Univers HYDROCHLORO 3-01 08-30 TABLET BY it y of THIAZIDE 00:00: 00:00 MOUTH [place] 20-12.5 mg 00 :00 TWICE A Medica l per tablet DAY Branch lisinopriL- 2019-09 Yes [id number] 1{tbl} Take 1 Univers hydrochloro 2-03 tablet by ity of thiazide 00:00: mouth 2 [place] 20-12.5 mg 00 (two) Medical per tablet times Branch daily. clonazePAM 2019- Yes [id number] .5mg Take 1 U nivers 0.5 mg 2-03 tablet by ity of tablet 00:00: mouth 2 00 (two) Medical times Branch daily. minocycline 2020- Yes [id number] 50mg Take 1 [facility] 50 mg 2-03 capsule by ity of capsule 00:00: mouth 00 daily. Medical Branch clonazePAM 2019- Yes [id number] .5mg Take 1 U nivers 0.5 mg 2-03 tablet by ity of tablet 00:00: mouth 2 00 (two) Medical times Branch daily. minocycline 2020- Yes [id number] 50mg Take 1 [facility] 50 mg 2-03 capsule by ity of capsule 00:00: mouth 00 daily. Medical Branch clonazePAM 2019- Yes [id number] .5mg Take 1 U nivers 0.5 mg 2-03 tablet by ity of tablet 00:00: mouth 2 [place] 00 (two) Medical times Branch daily. minocycline 2020- Yes [id number] 50mg Take 1 Univers 50 mg 2-03 capsule by ity of capsule 00:00: mouth [place] 00 daily. Medical Branch clonazePAM 2019- Yes [id number] .5mg Take 1 U nivers 0.5 mg 2-03 tablet by ity of tablet 00:00: mouth 2 00 (two) Medical times Branch daily. clonazePAM 2019- Yes [id number] .5mg Take 1 U nivers 0.5 mg 2-03 tablet by ity of tablet 00:00: mouth 2 [place] 00 (two) Medical times Branch daily. clonazePAM 2019- Yes [id number] .5mg Take 1 U nivers 0.5 mg 2-03 tablet by ity of tablet 00:00: mouth 2 [place] 00 (two) Medical times Branch daily. clonazePAM 2019- Yes [id number] .5mg Take 1 U nivers 0.5 mg 2-03 tablet by ity of tablet 00:00: mouth 2 [place] 00 (two) Medical times Branch daily. clonazePAM 2019-09- No [id number] .5mg Take 1 Univers 0.5 mg 2-03 08-30 tablet by ity of tablet 00:00: 00:00 mouth 2 [place] 00 :00 (two) Medical times Branch daily. minocycline 2019-09- No [id number] 50mg Take 1 Univers 50 mg 2-03 05-11 capsule by ity of capsule 00:00: 00:00 mouth [place] 00 :00 daily. Medical Branch lisinopriL- 2019-09- No [id number] 1{tbl} Take 1 Univers hydrochloro 2-03 03-01 tablet by it y of thiazide 00:00: 00:00 mouth 2 [place] 20-12.5 mg 00 :00 (two) Medical per tablet times Branch daily. CLONAZEPAM 2019-0 Yes [id number] TAKE 1 U nivers 0.5 mg 8-24 TABLET BY ity of tablet 00:00: MOUTH [place] 00 TWICE A Medical DAY Branch CLONAZEPAM 2019-0 2019- No [id number] TAKE 1 Univers 0.5 mg 8-24 12-03 TABLET BY ity of tablet 00:00: 00:00 MOUTH [place] 00 :00 TWICE A Medical DAY Branch tiZANidine 2020-0 Yes [id number] 4mg Take 1 U nivers 4 mg tablet 6-08 tablet by ity of 00:00: mouth [place] 00 every 8 Medical (eight) Branch hours as needed for Pain (scale 4-6). diclofenac 2020-0 Yes [id number] 50mg Take 1 U nivers 50 mg EC 6-08 tablet by ity of tablet 00:00: mouth 2 [place] 00 (two) Medical times Branch daily with meals. tiZANidine 2020-0 Yes [id number] 4mg Take 1 U nivers 4 mg tablet 6-08 tablet by ity of 00:00: mouth [place] 00 every 8 Medical (eight) Branch hours as needed for Pain (scale 4-6). diclofenac 2020-0 Yes [id number] 50mg Take 1 U nivers 50 mg EC 6-08 tablet by ity of tablet 00:00: mouth (two) Medical times Branch daily with meals. tiZANidine 2020-0 Yes [id number] 4mg Take 1 U nivers 4 mg tablet 6-08 tablet by ity of 00:00: mouth [place] 00 every 8 Medical (eight) Branch hours as needed for Pain (scale 4-6). diclofenac 2020-0 Yes [id number] 50mg Take 1 U nivers 50 mg EC 6-08 tablet by ity of tablet 00:00: mouth (two) Medical times Branch daily with meals. tiZANidine 2020-0 Yes [id number] 4mg Take 1 U nivers 4 mg tablet 6-08 tablet by ity of 00:00: mouth [place] 00 every 8 Medical (eight) Branch hours as needed for Pain (scale 4-6). diclofenac 2020-0 Yes [id number] 50mg Take 1 U nivers 50 mg EC 6-08 tablet by ity of tablet 00:00: mouth (two) Medical times Branch daily with meals. tiZANidine 2020-0 Yes [id number] 4mg Take 1 U nivers 4 mg tablet 6-08 tablet by ity of 00:00: mouth [place] 00 every 8 Medical (eight) Branch hours as needed for Pain (scale 4-6). diclofenac 2020-0 Yes [id number] 50mg Take 1 U nivers 50 mg EC 6-08 tablet by ity of tablet 00:00: mouth (two) Medical times Branch daily with meals. tiZANidine 2020-0 Yes [id number] 4mg Take 1 U nivers 4 mg tablet 6-08 tablet by ity of 00:00: mouth [place] 00 every 8 Medical (eight) Branch hours as needed for Pain (scale 4-6). diclofenac 2020-0 Yes [id number] 50mg Take 1 U nivers 50 mg EC 6-08 tablet by ity of tablet 00:00: mouth 2 (two) Medical times Branch daily with meals. tiZANidine 2020-0 Yes [id number] 4mg Take 1 U nivers 4 mg tablet 6-08 tablet by ity of 00:00: mouth every 8 Medical (eight) Branch hours as needed for Pain (scale 4-6). diclofenac 2020-0 Yes [id number] 50mg Take 1 U nivers 50 mg EC 6-08 tablet by ity of tablet 00:00: mouth (two) Medical times Branch daily with meals. tiZANidine 2020-0 Yes [id number] 4mg Take 1 U nivers 4 mg tablet 6-08 tablet by ity of 00:00: mouth every 8 Medical (eight) Branch hours as needed for Pain (scale 4-6). diclofenac 2020-0 Yes [id number] 50mg Take 1 U nivers 50 mg EC 6-08 tablet by ity of tablet 00:00: mouth (two) Medical times Branch daily with meals. tiZANidine 2020-0 Yes [id number] 4mg Take 1 U nivers 4 mg tablet 6-08 tablet by ity of 00:00: mouth [place] every 8 Medical (eight) Branch hours as needed for Pain (scale 4-6). diclofenac 2020-0 Yes [id number] 50mg Take 1 U nivers 50 mg EC 6-08 tablet by ity of tablet 00:00: mouth (two) Medical times Branch daily with meals. tiZANidine 2020-0 Yes [id number] 4mg Take 1 U nivers 4 mg tablet 6-08 tablet by ity of 00:00: mouth 00 every 8 Medical (eight) Branch hours as needed for Pain (scale 4-6). diclofenac 2020-0 Yes [id number] 50mg Take 1 U nivers 50 mg EC 6-08 tablet by ity of tablet 00:00: mouth (two) Medical times Branch daily with meals. tiZANidine 2020-0 Yes [id number] 4mg Take 1 U nivers 4 mg tablet 6-08 tablet by ity of 00:00: mouth [place] 00 every 8 Medical (eight) Branch hours as needed for Pain (scale 4-6). diclofenac 2020-0 2021- No [id number] 50mg Take 1 Univers 50 mg EC 6-08 08-30 tablet by ity o f tablet 00:00: 00:00 mouth 2 [place] 00 :00 (two) Medical times Branch daily with meals. clonazePAM 2020-0 Yes [id number] TAKE 1 U nivers 0.5 mg 5-19 TABLET BY ity of tablet 00:00: MOUTH [place] 00 TWICE A Medical DAY Branch clonazePAM 2020-0 Yes [id number] TAKE 1 U nivers 0.5 mg 5-19 TABLET BY ity of tablet 00:00: MOUTH [place] 00 TWICE A Medical DAY Branch clonazePAM 2020-0 Yes [id number] TAKE 1 U nivers 0.5 mg 5-19 TABLET BY ity of tablet 00:00: MOUTH [place] 00 TWICE A Medical DAY Branch clonazePAM 2020-0 Yes [id number] TAKE 1 U nivers 0.5 mg 5-19 TABLET BY ity of tablet 00:00: MOUTH [place] 00 TWICE A Medical DAY Branch clonazePAM 2020-0 2020- No [id number] TAKE 1 Univers 0.5 mg 5-19 08-24 TABLET BY ity of tablet 00:00: 00:00 MOUTH [place] 00 :00 TWICE A Medical DAY Branch minocycline 2020-0 Yes [id number] 50mg Take 1 Univers 50 mg 4-01 capsule by ity of capsule 00:00: mouth [place] 00 daily. Medical Branch minocycline 2020-0 Yes [id number] 50mg Take 1 Univers 50 mg 4-01 capsule by ity of capsule 00:00: mouth [place] 00 daily. Medical Branch minocycline 2020-0 Yes [id number] 50mg Take 1 [facility] 50 mg 4-01 capsule by ity of capsule 00:00: mouth [place] 00 daily. Medical Branch minocycline 2020-0 Yes [id number] 50mg Take 1 Univers 50 mg 4-01 capsule by ity of capsule 00:00: mouth [place] 00 daily. Medical Branch minocycline 2020-0 Yes [id number] 50mg Take 1 Univers 50 mg 4-01 capsule by ity of capsule 00:00: mouth [place] 00 daily. Medical Branch minocycline 2020-0 Yes [id number] 50mg Take 1 Univers 50 mg 4-01 capsule by ity of capsule 00:00: mouth [place] 00 daily. Medical Branch minocycline 2020-0 2020- No [id number] 50mg Take 1 Univers 50 mg 4-01 12-03 capsule by ity of capsule 00:00: 00:00 mouth [place] 00 :00 daily. Medical Branch METOPROLOL 2018- Yes TAKE 1 Unive rs SUCCINATE 2-05 TABLET BY ity o f XL 50 mg 24 00:00: MOUTH [place] hr tablet 00 EVERY DAY Medic al Branch LISINOPRIL- 2018 Yes TAKE 1 Univ ers HYDROCHLORO 2-05 TABLET BY ity of THIAZIDE 00:00: MOUTH [place] 20-12.5 mg 00 TWICE A Medica l per tablet DAY Branch METOPROLOL 2018-09 Yes TAKE 1 Unive rs SUCCINATE 2-05 TABLET BY ity o f XL 50 mg 24 00:00: MOUTH [place] hr tablet 00 EVERY DAY Medic al Branch LISINOPRIL- 2018-09 Yes TAKE 1 Univ ers HYDROCHLORO 2-05 TABLET BY ity of THIAZIDE 00:00: MOUTH [place] 20-12.5 mg 00 TWICE A Medica l per tablet DAY Branch METOPROLOL 2018-09 Yes TAKE 1 Unive rs SUCCINATE 2-05 TABLET BY ity o f XL 50 mg 24 00:00: MOUTH [place] hr tablet 00 EVERY DAY Medic al [place] LISINOPRIL- 2018-09 Yes TAKE 1 Univ ers HYDROCHLORO 2-05 TABLET BY ity of THIAZIDE 00:00: MOUTH [place] 20-12.5 mg 00 TWICE A Medica l per tablet DAY Branch METOPROLOL 2018-09 Yes TAKE 1 Unive rs SUCCINATE 2-05 TABLET BY ity o f XL 50 mg 24 00:00: MOUTH [place] hr tablet 00 EVERY DAY Medic al [place] LISINOPRIL- 2018-09 Yes TAKE 1 Univ ers HYDROCHLORO 2-05 TABLET BY ity of THIAZIDE 00:00: MOUTH [place] 20-12.5 mg 00 TWICE A Medica l per tablet DAY Branch METOPROLOL 2018-09 Yes TAKE 1 Unive rs SUCCINATE 2-05 TABLET BY ity o f XL 50 mg 24 00:00: MOUTH [place] hr tablet 00 EVERY DAY Medic al [place] LISINOPRIL- 2018-09 Yes TAKE 1 Univ ers HYDROCHLORO 2-05 TABLET BY ity of THIAZIDE 00:00: MOUTH [place] 20-12.5 mg 00 TWICE A Medica l per tablet DAY Branch METOPROLOL 2018-09 Yes TAKE 1 Unive rs SUCCINATE 2-05 TABLET BY ity o f XL 50 mg 24 00:00: MOUTH [place] hr tablet 00 EVERY DAY Medic al Branch LISINOPRIL- 2018-09 Yes TAKE 1 Univ ers HYDROCHLORO 2-05 TABLET BY ity of THIAZIDE 00:00: MOUTH [place] 20-12.5 mg 00 TWICE A Medica l per tablet DAY Branch METOPROLOL 2018-09 Yes TAKE 1 Unive rs SUCCINATE 2-05 TABLET BY ity o f XL 50 mg 24 00:00: MOUTH [place] hr tablet 00 EVERY DAY Medic [facility] METOPROLOL 2018-09 Yes TAKE 1 Unive rs SUCCINATE 2-05 TABLET BY ity o f XL 50 mg 24 00:00: MOUTH [place] hr tablet 00 EVERY DAY Medic [facility] METOPROLOL 2018-09 Yes TAKE 1 Unive rs SUCCINATE 2-05 TABLET BY ity o f XL 50 mg 24 00:00: MOUTH [place] hr tablet 00 EVERY DAY Medic [facility] METOPROLOL 2018-09 Yes TAKE 1 Unive rs SUCCINATE 2-05 TABLET BY ity o f XL 50 mg 24 00:00: MOUTH [place] hr tablet 00 EVERY DAY Medic [facility] METOPROLOL 2018-09 Yes TAKE 1 Unive rs SUCCINATE 2-05 TABLET BY ity o f XL 50 mg 24 00:00: MOUTH [place] hr tablet 00 EVERY DAY Medic [facility] METOPROLOL 2018-09 Yes TAKE 1 Unive rs SUCCINATE 2-05 TABLET BY ity o f XL 50 mg 24 00:00: MOUTH [place] hr tablet 00 EVERY DAY [facility] METOPROLOL 2018-09 Yes TAKE 1 Unive rs SUCCINATE 2-05 TABLET BY ity o f XL 50 mg 24 00:00: MOUTH [place] hr tablet 00 EVERY DAY [facility] METOPROLOL 2018-09- No TAKE 1 Univ ers SUCCINATE 2-05 08-30 TABLET BY ity of XL 50 mg 24 00:00: 00:00 MOUTH [place] hr tablet 00 :00 EVERY DAY [facility] LISINOPRIL- 2018-09 2020- No TAKE 1 Uni vers HYDROCHLORO 2-05 12-03 TABLET BY it y of THIAZIDE 00:00: 00:00 MOUTH [place] 20-12.5 mg 00 :00 TWICE A Medica l per tablet DAY Branch metoprolol Yes 50mg Take 1 Unive rs succinate 9-04 tablet by ity o f XL 50 mg 24 00:00: mouth [place] hr tablet 00 daily. Medical Branch lisinopril- Yes 1{tbl} Take 1 Un jodi hydrochloro 9-04 tablet by ity of thiazide 00:00: mouth 2 [place] 20-12.5 mg 00 (two) Medical per tablet times Branch daily. metoprolol Yes 50mg Take 1 Unive rs succinate 9-04 tablet by ity o f XL 50 mg 24 00:00: mouth [place] hr tablet 00 daily. Medical Branch lisinopril- Yes 1{tbl} Take 1 Un jodi hydrochloro 9-04 tablet by ity of thiazide 00:00: mouth 2 [place] 20-12.5 mg 00 (two) Medical per tablet times Branch daily. triamcinolo 2018- No 40mg Unive rs ne 05-25 ity of acetonide 14:45: 13:46 [place] (KENALOG) 00 :00 Medical injection Branch 40 mg methylPREDN 2018- No 80mg Unive rs ISolone 05-25 ity of acetate 14:45: 13:46 [place] (DEPO-MEDRO 00 :00 Medical L) Branch injection 80 mg methylPREDN 2018- No 80mg 80 mg, Uni vers ISolone 05-25 Intramuscu ity o f acetate 14:45: 13:46 lar, ONCE, [place] (DEPO-MEDRO 00 :00 1 dose, Medic al L) Tue Branch injection 05/25/19 at 80 mg 0945, Routine triamcinolo 2018- No 40mg 40 mg, Uni vers ne 05-25 Intramuscu ity of acetonide 14:45: 13:46 [place]CE, [place] (KENALOG[place] 00 :00 1 dose, Medical injection Tue Branch 40 mg 05/25/19 at 0945, Routine triamcinolo 2018- No 40mg Unive rs ne 05-25 ity of acetonide 14:45: 13:46 [place] (KENALOG) 00 :00 Medical injection Branch 40 mg methylPREDN 2018- No 80mg Unive rs ISolone 05-25 ity of acetate 14:45: 13:46 [place] (DEPO-MEDRO 00 :00 Medical L) Branch injection 80 mg methylPREDN 2018- No 80mg 80 mg, Uni vers ISolone 05-25 Intramuscu ity o f acetate 14:45: 13:46 lar, ONCE, [place] (DEPO-MEDRO 00 :00 1 dose, Medic al L) Tue Branch injection 05/25/19 at 80 mg 0945, Routine triamcinolo 2018- No 40mg 40 mg, Uni vers ne 8-27 08-27 Intramuscu ity of acetonide 14:45: 13:46 lar, ONCE, [place] (KENALOG) 00 :00 1 dose, Medical injection Tue Branch 40 mg 05/25/19 at 0945, Routine clonazePAM Yes [id number] TAKE 1 U nivers 0.5 mg 8-27 TABLET BY ity of tablet 00:00: MOUTH [place] 00 TWICE A Medical DAY Branch escitalopra Yes [id number] 10mg Take 1 Univers m oxalate 8-27 tablet by ity o f 10 mg 00:00: mouth [place] tablet 00 daily. Medical Branch clonazePAM Yes [id number] TAKE 1 U nivers 0.5 mg 8-27 TABLET BY ity of tablet 00:00: MOUTH [place] 00 TWICE A Medical DAY Branch escitalopra Yes [id number] 10mg Take 1 Univers m oxalate 8-27 tablet by ity o f 10 mg 00:00: mouth [place] tablet 00 daily. Medical Branch clonazePAM Yes [id number] TAKE 1 U nivers 0.5 mg 8-27 TABLET BY ity of tablet 00:00: MOUTH [place] 00 TWICE A Medical DAY Branch escitalopra Yes [id number] 10mg Take 1 Univers m oxalate 8-27 tablet by ity o f 10 mg 00:00: mouth [place] tablet 00 daily. Medical Branch lisinopril- Yes 1{tbl} Take 1 Un jodi hydrochloro 8-27 tablet by ity of thiazide 00:00: mouth 2 [place] 20-12.5 mg 00 (two) Medical per tablet times Branch daily. MUST SEE DR LANE AND HAVE LABS BEFORE FILLED AGAIN CALL FOR APPOINTMEN [place] MEDRANO. clonazePAM Yes [id number] TAKE 1 U nivers 0.5 mg 8-27 TABLET BY ity of tablet 00:00: MOUTH [place] 00 TWICE A Medical DAY Branch escitalopra Yes [id number] 10mg Take 1 Univers m oxalate 8-27 tablet by ity o f 10 mg 00:00: mouth [place] tablet 00 daily. Medical Branch lisinopril- Yes 1{tbl} Take 1 Un jodi hydrochloro 8-27 tablet by ity of thiazide 00:00: mouth 2 [place] 20-12.5 mg 00 (two) Medical per tablet times Branch daily. MUST SEE DR LANE AND HAVE LABS BEFORE FILLED AGAIN CALL FOR APPOINTMEN T MARCELA. clonazePAM Yes [id number] TAKE 1 U nivers 0.5 mg 8-27 TABLET BY ity of tablet 00:00: MOUTH [place] 00 TWICE A Medical DAY Branch escitalopra Yes [id number] 10mg Take 1 Univers m oxalate 8-27 tablet by ity o f 10 mg 00:00: mouth [place] tablet 00 daily. Medical Branch lisinopril- Yes 1{tbl} Take 1 Un jodi hydrochloro 8-27 tablet by ity of thiazide 00:00: mouth 2 [place] 20-12.5 mg 00 (two) Medical per tablet times Branch daily. MUST SEE DR LANE AND HAVE LABS BEFORE FILLED AGAIN CALL FOR APPOINTMEN T MARCELA. clonazePAM Yes [id number] TAKE 1 U nivers 0.5 mg 8-27 TABLET BY ity of tablet 00:00: MOUTH [place] 00 TWICE A Medical DAY Branch escitalopra Yes [id number] 10mg Take 1 Univers m oxalate 8-27 tablet by ity o f 10 mg 00:00: mouth [place] tablet 00 daily. Medical Branch lisinopril- Yes 1{tbl} Take 1 Un jodi hydrochloro 8-27 tablet by ity of thiazide 00:00: mouth 2 [place] 20-12.5 mg 00 (two) Medical per tablet times Branch daily. MUST SEE DR LANE AND HAVE LABS BEFORE FILLED AGAIN CALL FOR APPOINTMEN T MARCELA. clonazePAM Yes [id number] TAKE 1 U nivers 0.5 mg 8-27 TABLET BY ity of tablet 00:00: MOUTH [place] 00 TWICE A Medical DAY Branch escitalopra Yes [id number] 10mg Take 1 Univers m oxalate 8-27 tablet by ity o f 10 mg 00:00: mouth [place] tablet 00 daily. Medical Branch lisinopril- Yes 1{tbl} Take 1 Un jodi hydrochloro 8-27 tablet by ity of thiazide 00:00: mouth 2 [place] 20-12.5 mg 00 (two) Medical per tablet times Branch daily. MUST SEE DR LANE AND HAVE LABS BEFORE FILLED AGAIN CALL FOR APPOINTMEN T MARCELA. clonazePAM Yes [id number] TAKE 1 U nivers 0.5 mg 8-27 TABLET BY ity of tablet 00:00: MOUTH [place] 00 TWICE A Medical DAY Branch escitalopra Yes [id number] 10mg Take 1 Univers m oxalate 8-27 tablet by ity o f 10 mg 00:00: mouth [place] tablet 00 daily. Medical Branch clonazePAM Yes [id number] TAKE 1 U nivers 0.5 mg 8-27 TABLET BY ity of tablet 00:00: MOUTH [place] 00 TWICE A Medical DAY Branch escitalopra Yes [id number] 10mg Take 1 Univers m oxalate 8-27 tablet by ity o f 10 mg 00:00: mouth [place] tablet 00 daily. Medical Branch clonazePAM Yes [id number] TAKE 1 U nivers 0.5 mg 8-27 TABLET BY ity of tablet 00:00: MOUTH [place] 00 TWICE A Medical DAY [place] escitalopra Yes [id number] 10mg Take 1 Univers m oxalate 8-27 tablet by ity o f 10 mg 00:00: mouth [place] tablet 00 daily. Medical Branch escitalopra Yes [id number] 10mg Take 1 Univers m oxalate 8-27 tablet by ity o f 10 mg 00:00: mouth [place] tablet 00 daily. Medical Branch escitalopra Yes [id number] 10mg Take 1 Univers m oxalate 8-27 tablet by ity o f 10 mg 00:00: mouth [place] tablet 00 daily. Medical Branch escitalopra Yes [id number] 10mg Take 1 Univers m oxalate 8-27 tablet by ity o f 10 mg 00:00: mouth [place] tablet 00 daily. Medical Branch escitalopra Yes [id number] 10mg Take 1 Univers m oxalate 8-27 tablet by ity o f 10 mg 00:00: mouth [place] tablet 00 daily. Medical Branch escitalopra Yes [id number] 10mg Take 1 Univers m oxalate 8-27 tablet by ity o f 10 mg 00:00: mouth [place] tablet 00 daily. [facility] Branch escitalopra Yes [id number] 10mg Take 1 Univers m oxalate 8-27 tablet by ity o f 10 mg 00:00: mouth [place] tablet 00 daily. [facility] escitalopra Yes [id number] 10mg Take 1 [facility] m oxalate 8-27 tablet by ity o f 10 mg 00:00: mouth [place] tablet 00 daily. [facility] escitalopra Yes [id number] 10mg Take 1 [facility] m oxalate 8-27 tablet by ity o f 10 mg 00:00: mouth [place] tablet 00 daily. Medical Branch escitalopra Yes [id number] 10mg Take 1 [facility] m oxalate 8-27 tablet by ity o f 10 mg 00:00: mouth [place] tablet 00 daily. Medical Branch escitalopra Yes [id number] 10mg Take 1 [facility] m oxalate 8-27 tablet by ity o f 10 mg 00:00: mouth [place] tablet 00 daily. Medical Branch escitalopra Yes [id number] 10mg Take 1 [facility] m oxalate 8-27 tablet by ity o f 10 mg 00:00: mouth [place] tablet 00 daily. Medical Branch escitalopra Yes [id number] 10mg Take 1 [facility] m oxalate 8-27 tablet by ity o f 10 mg 00:00: mouth [place] tablet 00 daily. Medical Branch escitalopra 2020- No [id number] 10mg Take 1 [facility] m oxalate 8-27 08-30 tablet by ity of 10 mg 00:00: 00:00 mouth [place] tablet 00 :00 daily. Medical Branch clonazePAM 2020- No [id number] TAKE 1 [facility] 0.5 mg 8-27 05-19 TABLET BY ity of tablet 00:00: 00:00 MOUTH [place] 00 :00 TWICE A Medical DAY Branch lisinopril- 2019- No 1{tbl} Take 1 U nivers hydrochloro 8-27 09-04 tablet by it y of thiazide 00:00: 00:00 mouth 2 [place] 20-12.5 mg 00 :00 (two) Medical per tablet times Branch daily. MUST SEE DR LANE AND HAVE LABS BEFORE FILLED AGAIN CALL FOR APPOINTMEN [facility] MEDRANO. clonazePAM Yes [id number] .5mg Take 1 U nivers 0.5 mg 8-21 tablet by ity of tablet 00:00: mouth 2 [place] 00 (two) Medical times Branch daily. clonazePAM Yes [id number] .5mg Take 1 U nivers 0.5 mg 8-21 tablet by ity of tablet 00:00: mouth 2 [place] 00 (two) Medical times Branch daily. clonazePAM Yes [id number] .5mg Take 1 U nivers 0.5 mg 8-21 tablet by ity of tablet 00:00: mouth (two) Medical times Branch daily. clonazePAM 2019-0 Yes [id number] .5mg Take 1 U nivers 0.5 mg 8-21 tablet by ity of tablet 00:00: mouth (two) Medical times Branch daily. clonazePAM 2019-0 Yes [id number] .5mg Take 1 U nivers 0.5 mg 8-21 tablet by ity of tablet 00:00: mouth (two) Medical times Branch daily. clonazePAM 2019-0 Yes [id number] .5mg Take 1 U nivers 0.5 mg 8-21 tablet by ity of tablet 00:00: mouth (two) Medical times Branch daily. clonazePAM 2019-0 Yes [id number] .5mg Take 1 U nivers 0.5 mg 8-21 tablet by ity of tablet 00:00: mouth (two) Medical times Branch daily. clonazePAM 2019-0 Yes [id number] .5mg Take 1 U nivers 0.5 mg 8-21 tablet by ity of tablet 00:00: mouth (two) Medical times Branch daily. clonazePAM 2019-0 Yes [id number] .5mg Take 1 U nivers 0.5 mg 8-21 tablet by ity of tablet 00:00: mouth (two) Medical times Branch daily. clonazePAM 2019-0 Yes [id number] .5mg Take 1 U nivers 0.5 mg 8-21 tablet by ity of tablet 00:00: mouth (two) Medical times Branch daily. minocycline 2019-0 Yes 50mg Take 1 Univ ers 50 mg 8-06 capsule by ity of capsule 00:00: mouth [place] 00 daily. Medical Branch minocycline 2019-0 Yes 50mg Take 1 Univ ers 50 mg 8-06 capsule by ity of capsule 00:00: mouth [place] 00 daily. Medical Branch minocycline 2019-0 Yes 50mg Take 1 Univ ers 50 mg 8-06 capsule by ity of capsule 00:00: mouth [place] 00 daily. Medical Branch minocycline 2019-0 Yes 50mg Take 1 Univ ers 50 mg 8-06 capsule by ity of capsule 00:00: mouth [place] 00 daily. Medical Branch minocycline 2019-0 Yes 50mg Take 1 Univ ers 50 mg 8-06 capsule by ity of capsule 00:00: mouth [place] 00 daily. Medical Branch minocycline 2019-0 Yes 50mg Take 1 Univ ers 50 mg 8-06 capsule by ity of capsule 00:00: mouth [place] 00 daily. Medical Branch minocycline 2019-0 Yes 50mg Take 1 Univ ers 50 mg 8-06 capsule by ity of capsule 00:00: mouth [place] 00 daily. Medical Branch minocycline 2019-0 Yes 50mg Take 1 Univ ers 50 mg 8-06 capsule by ity of capsule 00:00: mouth [place] 00 daily. Medical Branch minocycline 2019-0 Yes 50mg Take 1 Univ ers 50 mg 8-06 capsule by ity of capsule 00:00: mouth [place] 00 daily. Medical Branch minocycline 2019-0 Yes 50mg Take 1 Univ ers 50 mg 8-06 capsule by ity of capsule 00:00: mouth [place] 00 daily. Medical Branch minocycline 2019-0 Yes 50mg Take 1 Univ ers 50 mg 8-06 capsule by ity of capsule 00:00: mouth [place] 00 daily. Medical Branch minocycline 2019-0 2020- No 50mg Take 1 Uni vers 50 mg 8-06 04-01 capsule by ity of capsule 00:00: 00:00 mouth [place] 00 :00 daily. Medical Branch lisinopril- Yes 1{tbl} Take 1 Un jodi hydrochloro 7-30 tablet by ity of thiazide 00:00: mouth [place] 20-12.5 mg 00 daily. Medical per tablet MUST SEE [address] AND HAVE LABS BEFORE FILLED AGAIN CALL FOR APPOINTMEN T MARCELA. metoprolol 2018- Yes 50mg Take 1 Unive rs succinate 7-30 tablet by ity o f XL 50 mg 24 00:00: mouth [place] hr tablet 00 daily. Medical MUST SEE Branch DR LANE AND HAVE LABS BEFORE FILLED AGAIN CALL FOR APPOINTMEN T MARCELA. lisinopril- 2018- Yes 1{tbl} Take 1 Un jodi hydrochloro 7-30 tablet by ity of thiazide 00:00: mouth [place] 20-12.5 mg 00 daily. Medical per tablet MUST SEE [address] AND HAVE LABS BEFORE FILLED AGAIN CALL FOR APPOINTMEN T MARCELA. lisinopril- Yes 1{tbl} Take 1 Un jodi hydrochloro 7-30 tablet by ity of thiazide 00:00: mouth [place] 20-12.5 mg 00 daily. Medical per tablet MUST SEE [address] AND HAVE LABS BEFORE FILLED AGAIN CALL FOR APPOINTMEN T MARCELA. metoprolol Yes 50mg Take 50 mg U nivers succinate 7-30 by mouth ity of XL 50 mg 24 00:00: daily. [place] tablet 00 Medical Branch lisinopril- Yes 1{tbl} Take 1 Un jodi hydrochloro 7-30 tablet by ity of thiazide 00:00: mouth [place] 20-12.5 mg 00 daily. Medical per tablet MUST SEE [address] AND HAVE LABS BEFORE FILLED AGAIN CALL FOR APPOINTMEN T MARCELA. metoprolol Yes 50mg Take 1 Unive rs succinate 7-30 tablet by ity o f XL 50 mg 24 00:00: mouth [place] hr tablet 00 daily. Medical MUST SEE Branch [address] L[address] AND HAVE LABS BEFORE FILLED AGAIN CALL FOR APPOINTMEN T MARCELA. lisinopril- Yes 1{tbl} Take 1 Un jodi hydrochloro 7-30 tablet by ity of thiazide 00:00: mouth [place] 20-12.5 mg 00 daily. Medical per tablet MUST SEE [facility] [address] AND HAVE LABS BEFORE FILLED AGAIN CALL FOR APPOINTMEN T MARCELA. metoprolol Yes 50mg Take 1 Unive rs succinate 7-30 tablet by ity o f XL 50 mg 24 00:00: mouth [place] hr tablet 00 daily. Medical MUST SEE Branch [address] L[address] AND HAVE LABS BEFORE FILLED AGAIN CALL FOR APPOINTMEN T MARCELA. metoprolol 2018- No 50mg Take 50 mg Univers succinate 7-06-01 by mouth ity o f XL 50 mg 24 00:00: 00:00 daily. [place] hr tablet 00 :00 Medical Branch metoprolol 2018- No 50mg Take 1 Univ ers succinate 7-30 08-27 tablet by ity of XL 50 mg 24 00:00: 00:00 mouth [place] hr tablet 00 :00 daily. Medical MUST SEE Branch DR L[address] AND HAVE LABS BEFORE FILLED AGAIN CALL FOR APPOINTMEN T MARCELA. metoprolol 2019- No 50mg Take 1 Univ ers succinate 7-30 08- tablet by ity of XL 50 mg 24 00:00: 00:00 mouth [place] hr tablet 00 :00 daily. Medical MUST SEE Branch [address] L[address] AND HAVE LABS BEFORE FILLED AGAIN CALL FOR APPOINTMEN T MARCELA. lisinopril- 2019 2019- No 1{tbl} Take 1 U nivers hydrochloro 7-30 08-27 tablet by it y of thiazide 00:00: 00:00 mouth [place] 20-12.5 mg 00 :00 daily. Medical per tablet MUST SEE [address] AND HAVE LABS BEFORE FILLED AGAIN CALL FOR APPOINTMEN T MARCELA. lisinopril- 2019 2019- No 1{tbl} Take 1 U nivers hydrochloro 7-30 08-27 tablet by it y of thiazide 00:00: 00:00 mouth [place] 20-12.5 mg 00 :00 daily. Medical per tablet MUST SEE [address] AND HAVE LABS BEFORE FILLED AGAIN CALL FOR APPOINTMEN T MARCELA. metoprolol 2019- No 50mg Take 1 Univ ers succinate - 07-30 tablet by ity of XL 50 mg 24 00:00: 00:00 mouth [place] hr tablet 00 :00 daily. Medical Branch lisinopril- 2019- No 1{tbl} Take 1 U nivers hydrochloro - 07-30 tablet by it y of thiazide 00:00: 00:00 mouth [place] 20-12.5 mg 00 :00 daily. Medical per tablet Branch clonazePAM Yes [id number] TAKE 1 U nivers 0.5 mg 5-08 TABLET BY ity of tablet 00:00: MOUTH [place] 00 TWICE A Medical DAY Branch clonazePAM Yes [id number] TAKE 1 U nivers 0.5 mg 5-08 TABLET BY ity of tablet 00:00: MOUTH [place] 00 TWICE A Medical DAY Branch clonazePAM Yes [id number] TAKE 1 U nivers 0.5 mg 5-08 TABLET BY ity of tablet 00:00: MOUTH [place] 00 TWICE A Medical DAY Branch clonazePAM 2019- No [id number] TAKE 1 [facility] 0.5 mg 5-08 08-27 TABLET BY ity of tablet 00:00: 00:00 MOUTH [place] 00 :00 TWICE A Medical DAY Branch clonazePAM 2019- No [id number] TAKE 1 Univers 0.5 mg 5-08 08-27 TABLET BY ity of tablet 00:00: 00:00 MOUTH [place] 00 :00 TWICE A Medical DAY Branch escitalopra 0 Yes 10mg Take 1 Univ ers m oxalate 3-08 tablet by ity o f 10 mg 00:00: mouth [place] tablet 00 daily. Medical Branch escitalopra 0 Yes 10mg Take 1 Univ ers m oxalate 3-08 tablet by ity o f 10 mg 00:00: mouth [place] tablet 00 daily. Medical Branch escitalopra Yes 10mg Take 1 Univ ers m oxalate 3-08 tablet by ity o f 10 mg 00:00: mouth [place] tablet 00 daily. Medical Branch escitalopra 2019- No 10mg Take 1 Uni vers m oxalate 3-08 08-27 tablet by ity of 10 mg 00:00: 00:00 mouth [place] tablet 00 :00 daily. Medical Branch escitalopra 2019- No 10mg Take 1 Uni vers m oxalate 3-08 08-27 tablet by ity of 10 mg 00:00: 00:00 mouth [place] tablet 00 :00 daily. Medical Branch minocycline 0 Yes 50mg Take 1 Univ ers 50 mg 1-25 capsule by ity of capsule 00:00: mouth [place] 00 daily. Medical Branch minocycline 2018-0 2019- No 50mg Take 1 Uni vers 50 mg 1-25 08-06 capsule by ity of capsule 00:00: 00:00 mouth [place] 00 :00 daily. Medical Branch proMETHazin 0 Yes 25mg Take 1 Univ ers e 25 mg 1-22 tablet by ity of tablet 00:00: mouth [place] 00 daily. Medical Branch proMETHazin 0 Yes 25mg Take 1 Univ ers e 25 mg 1-22 tablet by ity of tablet 00:00: mouth [place] 00 daily. Medical Branch proMETHazin 0 Yes 25mg Take 1 Univ ers e 25 mg 1-22 tablet by ity of tablet 00:00: mouth [place] 00 daily. Medical Branch proMETHazin 2018-0 Yes 25mg Take 1 Univ ers e 25 mg 1-22 tablet by ity of tablet 00:00: mouth [place] 00 daily. Medical Branch proMETHazin [id number] Yes 25mg Take 1 Univ ers e 25 mg 1-22 tablet by ity of tablet 00:00: mouth [place] 00 daily. Medical Branch proMETHazin 0 Yes 25mg Take 1 Univ ers e 25 mg 1-22 tablet by ity of tablet 00:00: mouth [place] 00 daily. Medical Branch proMETHazin 2019-0 Yes 25mg Take 1 Univ ers e 25 mg 1-22 tablet by ity of tablet 00:00: mouth [place] 00 daily. Medical Branch proMETHazin 2019-0 Yes 25mg Take 1 Univ ers e 25 mg 1-22 tablet by ity of tablet 00:00: mouth [place] 00 daily. Medical Branch proMETHazin 2019-0 Yes 25mg Take 1 Univ ers e 25 mg 1-22 tablet by ity of tablet 00:00: mouth [place] 00 daily. Medical Branch proMETHazin 2019-0 Yes 25mg Take 1 Univ ers e 25 mg 1-22 tablet by ity of tablet 00:00: mouth [place] 00 daily. Medical Branch proMETHazin 2019-0 Yes 25mg Take 1 Univ ers e 25 mg 1-22 tablet by ity of tablet 00:00: mouth [place] 00 daily. Medical Branch proMETHazin 2019-0 Yes 25mg Take 1 Univ ers e 25 mg 1-22 tablet by ity of tablet 00:00: mouth [place] 00 daily. Medical Branch clonazePAM 2019-0 Yes .5mg Take 1 Unive rs 0.5 mg 1-03 tablet by ity of tablet 00:00: mouth 2 00 (two) Medical times Branch daily. clonazePAM 2019-0 Yes .5mg Take 1 Unive rs 0.5 mg 1-03 tablet by ity of tablet 00:00: mouth 2 [place] 00 (two) Medical times Branch daily. clonazePAM 2019-0 2019- No .5mg Take 1 Univ ers 0.5 mg 1-03 08-21 tablet by ity of tablet 00:00: 00:00 mouth 2 [place] 00 :00 (two) Medical times Branch daily. tiZANidine 2018-0 Yes 4mg Take 1 Unive rs 4 mg tablet 1-18 tablet by ity of 00:00: mouth at [place] 00 bedtime as Medical needed for Branch Pain (scale 4-6). tiZANidine 2018-0 Yes 4mg Take 1 Unive rs 4 mg tablet 1-18 tablet by ity of 00:00: mouth at [place] 00 bedtime as Medical needed for Branch Pain (scale 4-6). tiZANidine 2018-0 Yes 4mg Take 1 Unive rs 4 mg tablet 1-18 tablet by ity of 00:00: mouth at [place] 00 bedtime as Medical needed for Branch Pain (scale 4-6). tiZANidine 2018-0 Yes 4mg Take 1 Unive rs 4 mg tablet 1-18 tablet by ity of 00:00: mouth at [place] 00 bedtime as Medical needed for Branch Pain (scale 4-6). tiZANidine 2018-0 Yes 4mg Take 1 Unive rs 4 mg tablet 1-18 tablet by ity of 00:00: mouth at [place] 00 bedtime as Medical needed for Branch Pain (scale 4-6). tiZANidine 2018-0 Yes 4mg Take 1 Unive rs 4 mg tablet 1-18 tablet by ity of 00:00: mouth at [place] 00 bedtime as Medical needed for Branch Pain (scale 4-6). tiZANidine 2018-0 Yes 4mg Take 1 Unive rs 4 mg tablet 1-18 tablet by ity of 00:00: mouth at [place] 00 bedtime as Medical needed for Branch Pain (scale 4-6). tiZANidine 2018-0 Yes 4mg Take 1 Unive rs 4 mg tablet 1-18 tablet by ity of 00:00: mouth at [place] 00 bedtime as Medical needed for Branch Pain (scale 4-6). tiZANidine 2018-0 Yes 4mg Take 1 Unive rs 4 mg tablet 1-18 tablet by ity of 00:00: mouth at [place] 00 bedtime as Medical needed for Branch Pain (scale 4-6). tiZANidine 2018-0 Yes 4mg Take 1 Unive rs 4 mg tablet 1-18 tablet by ity of 00:00: mouth at [place] 00 bedtime as Medical needed for Branch Pain (scale 4-6). tiZANidine 2018-0 Yes 4mg Take 1 Unive rs 4 mg tablet 1-18 tablet by ity of 00:00: mouth at [place] 00 bedtime as Medical needed for Branch Pain (scale 4-6). tiZANidine 2018-0 Yes 4mg Take 1 Unive rs 4 mg tablet 1-18 tablet by ity of 00:00: mouth at [place] 00 bedtime as Medical needed for Branch Pain (scale 4-6). tiZANidine 2018-0 Yes 4mg Take 1 Unive rs 4 mg tablet 1-18 tablet by ity of 00:00: mouth at [place] 00 bedtime as Medical needed for Branch Pain (scale 4-6). tiZANidine 2018-0 Yes 4mg Take 1 Unive rs 4 mg tablet 1-18 tablet by ity of 00:00: mouth at [place] 00 bedtime as Medical needed for Branch Pain (scale 4-6). tiZANidine 2018-0 Yes 4mg Take 1 Unive rs 4 mg tablet 1-18 tablet by ity of 00:00: mouth at [place] 00 bedtime as Medical needed for Branch Pain (scale 4-6). tiZANidine 2018-0 2020- No 4mg Take 1 Univ ers 4 mg tablet 1-18 06-08 tablet by it y of 00:00: 00:00 mouth at [place] 00 :00 bedtime as Medical needed for Branch Pain (scale 4-6). tiZANidine 2018-0 2020- No 4mg Take 1 Univ ers 4 mg tablet 1-18 06-08 tablet by it y of 00:00: 00:00 mouth at [place] 00 :00 bedtime as Medical needed for Branch Pain (scale 4-6). benzonatate 2018-0 Yes [id number] 100mg Take 1 Univers (TESSALON 1-05 capsule by ity of PERLES) 100 00:00: mouth 3 [place] mg capsule 00 (three) Medica l times Branch daily. promethazin 2018-0 Yes [id number] 5mL Take 5 mL Univers e-dextromet 1-05 by mouth 4 it y of horphan 00:00: (four) [place] 6.25-15 00 times Medical mg/5 mL daily as Branch syrup needed for Cold symptoms (for night time use.). benzonatate 2018-0 Yes [id number] 100mg Take 1 Univers (TESSALON 1-05 capsule by ity of PERLES) 100 00:00: mouth 3 [place] mg capsule 00 (three) Medica l times Branch daily. promethazin 2018-0 Yes [id number] 5mL Take 5 mL Univers e-dextromet 1-05 by mouth 4 it y of horphan 00:00: (four) [place] 6.25-15 00 times Medical mg/5 mL daily as Branch syrup needed for Cold symptoms (for night time use.). benzonatate 2018-0 Yes [id number] 100mg Take 1 Univers (TESSALON 1-05 capsule by ity of PERLES) 100 00:00: mouth 3 [place] mg capsule 00 (three) Medica l times Branch daily. promethazin Yes [id number] 5mL Take 5 mL Univers e-dextromet 1-05 by mouth 4 it y of horphan 00:00: (four) [place] 6.25-15 00 times Medical mg/5 mL daily as Branch syrup needed for Cold symptoms (for night time use.). benzonatate Yes [id number] 100mg Take 1 Univers (TESSALON 1-05 capsule by ity of PERLES) 100 00:00: mouth 3 [place] mg capsule 00 (three) Medica l times Branch daily. promethazin Yes [id number] 5mL Take 5 mL Univers e-dextromet 1-05 by mouth 4 it y of horphan 00:00: (four) [place] 6.25-15 00 times Medical mg/5 mL daily as Branch syrup needed for Cold symptoms (for night time use.). benzonatate Yes [id number] 100mg Take 1 Univers (TESSALON 1-05 capsule by ity of PERLES) 100 00:00: mouth 3 [place] mg capsule 00 (three) Medica l times Branch daily. promethazin Yes [id number] 5mL Take 5 mL Univers e-dextromet 1-05 by mouth 4 it y of horphan 00:00: (four) [place] 6.25-15 00 times Medical mg/5 mL daily as Branch syrup needed for Cold symptoms (for night time use.). benzonatate Yes [id number] 100mg Take 1 Univers (TESSALON 1-05 capsule by ity of PERLES) 100 00:00: mouth 3 [place] mg capsule 00 (three) Medica l times Branch daily. promethazin Yes [id number] 5mL Take 5 mL Univers e-dextromet 1-05 by mouth 4 it y of horphan 00:00: (four) [place] 6.25-15 00 times Medical mg/5 mL daily as Branch syrup needed for Cold symptoms (for night time use.). benzonatate Yes [id number] 100mg Take 1 Univers (TESSALON 1-05 capsule by ity of PERLES) 100 00:00: mouth 3 [place] mg capsule 00 (three) Medica l times Branch daily. promethazin Yes [id number] 5mL Take 5 mL Univers e-dextromet 1-05 by mouth 4 it y of horphan 00:00: (four) [place] 6.25-15 00 times Medical mg/5 mL daily as Branch syrup needed for Cold symptoms (for night time use.). benzonatate Yes [id number] 100mg Take 1 Univers (TESSALON 1-05 capsule by itmarla of [employer]) 100 00:00: mouth 3 [place] mg capsule 00 (three) Medica l times Branch daily. promethazin Yes [id number] 5mL Take 5 mL Univers e-dextromet 1-05 by mouth 4 it y of horphan 00:00: (four) [place] 6.25-15 00 times Medical mg/5 mL daily as Branch syrup needed for Cold symptoms (for night time use.). benzonatate Yes [id number] 100mg Take 1 Univers (TESSALON 1-05 capsule by [employer] [facility]) 100 00:00: mouth 3 [place] mg capsule 00 (three) Medica l times Branch daily. promethazin Yes [id number] 5mL Take 5 mL Univers e-dextromet 1-05 by mouth 4 it y of horphan 00:00: (four) [place] 6.25-15 00 times Medical mg/5 mL daily as Branch syrup needed for Cold symptoms (for night time use.). promethazin Yes [id number] 5mL Take 5 mL Univers e-dextromet 1-05 by mouth 4 it y of horphan 00:00: (four) [place] 6.25-15 00 times Medical mg/5 mL daily as Branch syrup needed for Cold symptoms (for night time use.). promethazin Yes [id number] 5mL Take 5 mL Univers e-dextromet 1-05 by mouth 4 it y of horphan 00:00: (four) [place] 6.25-15 00 times Medical mg/5 mL daily as Branch syrup needed for Cold symptoms (for night time use.). promethazin Yes [id number] 5mL Take 5 mL Univers e-dextromet 1-05 by mouth 4 it y of horphan 00:00: (four) [place] 6.25-15 00 times Medical mg/5 mL daily as Branch syrup needed for Cold symptoms (for night time use.). promethazin 2018-0 Yes [id number] 5mL Take 5 mL Univers e-dextromet 1-05 by mouth 4 it y of horphan 00:00: (four) [place] 6.25-15 00 times Medical mg/5 mL daily as Branch syrup needed for Cold symptoms (for night time use.). promethazin 2018-0 Yes [id number] 5mL Take 5 mL Univers e-dextromet 1-05 by mouth 4 it y of horphan 00:00: (four) [place] 6.25-15 00 times Medical mg/5 mL daily as Branch syrup needed for Cold symptoms (for night time use.). promethazin 2017-0 Yes [id number] 5mL Take 5 mL Univers e-dextromet 1-05 by mouth 4 it y of horphan 00:00: (four) [place] 6.25-15 00 times Medical mg/5 mL daily as Branch syrup needed for Cold symptoms (for night time use.). promethazin 2017-0 Yes [id number] 5mL Take 5 mL Univers e-dextromet 1-05 by mouth 4 it y of horphan 00:00: (four) [place] 6.25-15 00 times Medical mg/5 mL daily as Branch syrup needed for Cold symptoms (for night time use.). promethazin 2017-0 Yes [id number] 5mL Take 5 mL Univers e-dextromet 1-05 by mouth 4 it y of horphan 00:00: (four) [place] 6.25-15 00 times Medical mg/5 mL daily as Branch syrup needed for Cold symptoms (for night time use.). promethazin 2018-0 Yes [id number] 5mL Take 5 mL [facility] e-dextromet 1-05 by mouth 4 it y of horphan 00:00: (four) [place] 6.25-15 00 times Medical mg/5 mL daily as Branch syrup needed for Cold symptoms (for night time use.). promethazin 2018-0 Yes [id number] 5mL Take 5 mL [facility] e-dextromet 1-05 by mouth 4 it y of horphan 00:00: (four) [place] 6.25-15 00 times Medical mg/5 mL daily as Branch syrup needed for Cold symptoms (for night time use.). promethazin 2018- Yes [id number] 5mL Take 5 mL Univers e-dextromet 1-05 by mouth 4 it y of horphan 00:00: (four) [place] 6.25-15 00 times Medical mg/5 mL daily as Branch syrup needed for Cold symptoms (for night time use.). promethazin 2017- Yes [id number] 5mL Take 5 mL Univers e-dextromet 1-05 by mouth 4 it y of horphan 00:00: (four) [place] 6.25-15 00 times Medical mg/5 mL daily as Branch syrup needed for Cold symptoms (for night time use.). promethazin Yes [id number] 5mL Take 5 mL [facility] e-dextromet 1-05 by mouth 4 it y of horphan 00:00: (four) [place] 6.25-15 00 times Medical mg/5 mL daily as Branch syrup needed for Cold symptoms (for night time use.). benzonatate Yes [id number] 100mg Take 1 [facility] (TESSALON 1-05 capsule by ity of [facility]) 100 00:00: mouth 3 [place] mg capsule 00 (three) Medica l times Branch daily. promethazin Yes [id number] 5mL Take 5 mL [facility] e-dextromet 1-05 by mouth 4 it y of horphan 00:00: (four) [place] 6.25-15 00 times Medical mg/5 mL daily as Branch syrup needed for Cold symptoms (for night time use.). benzonatate Yes [id number] 100mg Take 1 Univers (TESSALON 1-05 capsule by ity of [facility]) 100 00:00: mouth 3 [place] mg capsule 00 (three) Medica l times Branch daily. promethazin Yes [id number] 5mL Take 5 mL Univers e-dextromet 1-05 by mouth 4 it y of horphan 00:00: (four) [place] 6.25-15 00 times Medical mg/5 mL daily as Branch syrup needed for Cold symptoms (for night time use.). benzonatate 2017- Yes [id number] 100mg Take 1 [facility] (TESSALON 1-05 capsule by ity of [facility]) 100 00:00: mouth 3 [place] mg capsule 00 (three) Medica l times Branch daily. promethazin Yes [id number] 5mL Take 5 mL [facility] e-dextromet 1-05 by mouth 4 it y of horphan 00:00: (four) [place] 6.25-15 00 times Medical mg/5 mL daily as Branch syrup needed for Cold symptoms (for night time use.). promethazin 2020- No [id number] 5mL Take 5 mL [facility] e-dextromet 1-05 08-30 by mouth 4 i ty of horphan 00:00: 00:00 (four) [place] 6.25-15 00 :00 times Medical mg/5 mL daily as Branch syrup needed for Cold symptoms (for night time use.). fluticasone Yes [id number] 2{spray Use 2 Univers 50 9-15 } Sprays in ity of mcg/actuati 00:00: each [place] on nasal 00 nostril Medical spray daily. Branch fluticasone Yes [id number] 2{spray Use 2 Univers 50 9-15 } Sprays in ity of mcg/actuati 00:00: each [place] on nasal 00 nostril Medical spray daily. Branch fluticasone Yes [id number] 2{spray Use 2 Univers 50 9-15 } Sprays in ity of mcg/actuati 00:00: each [place] on nasal 00 nostril Medical spray daily. Branch fluticasone 2016- Yes [id number] 2{spray Use 2 Univers 50 9-15 } Sprays in ity of mcg/actuati 00:00: each [place] on nasal 00 nostril Medical spray daily. Branch fluticasone 2016- Yes [id number] 2{spray Use 2 Univers 50 9-15 } Sprays in ity of mcg/actuati 00:00: each [place] on nasal 00 nostril Medical spray daily. Branch fluticasone Yes [id number] 2{spray Use 2 Univers 50 9-15 } Sprays in ity of mcg/actuati 00:00: each [place] on nasal 00 nostril Medical spray daily. Branch fluticasone 2016- Yes [id number] 2{spray Use 2 Univers 50 9-15 } Sprays in ity of mcg/actuati 00:00: each [place] on nasal 00 nostril Medical spray daily. Branch fluticasone 2017- Yes [id number] 2{spray Use 2 [facility] 50 9-15 } Sprays in ity of mcg/actuati 00:00: each [place] on nasal 00 nostril Medical spray daily. Branch fluticasone 2016- Yes [id number] 2{spray Use 2 Univers 50 9-15 } Sprays in ity of mcg/actuati 00:00: each [place] on nasal 00 nostril Medical spray daily. Branch fluticasone 2016- Yes [id number] 2{spray Use 2 Univers 50 9-15 } Sprays in ity of mcg/actuati 00:00: each [place] on nasal 00 nostril Medical spray daily. Branch fluticasone 2016- Yes [id number] 2{spray Use 2 Univers 50 9-15 } Sprays in ity of mcg/actuati 00:00: each [place] on nasal 00 nostril Medical spray daily. Branch fluticasone 2016- Yes [id number] 2{spray Use 2 [facility] 50 9-15 } Sprays in ity of mcg/actuati 00:00: each [place] on nasal 00 nostril Medical spray daily. Branch fluticasone 2016- Yes [id number] 2{spray Use 2 [facility] 50 9-15 } Sprays in ity of mcg/actuati 00:00: each [place] on nasal 00 nostril Medical spray daily. Branch fluticasone 2016-0 Yes [id number] 2{spray Use 2 [facility] 50 9-15 } Sprays in ity of mcg/actuati 00:00: each [place] on nasal 00 nostril Medical spray daily. Branch fluticasone 2016- Yes [id number] 2{spray Use 2 Univers 50 9-15 } Sprays in ity of mcg/actuati 00:00: each [place] on nasal 00 nostril Medical spray daily. Branch fluticasone 2016- Yes [id number] 2{spray Use 2 Univers 50 9-15 } Sprays in ity of mcg/actuati 00:00: each [place] on nasal 00 nostril Medical spray daily. Branch fluticasone 2016- Yes [id number] 2{spray Use 2 Univers 50 9-15 } Sprays in ity of mcg/actuati 00:00: each [place] on nasal 00 nostril Medical spray daily. Gela fluticasone 2017-0 Yes [id number] 2{spray Use 2 Univers 50 9-15 } Sprays in ity of mcg/actuati 00:00: each [place] on nasal 00 nostril Medical spray daily. Branch fluticasone 2017- Yes [id number] 2{spray Use 2 Univers 50 9-15 } Sprays in ity of mcg/actuati 00:00: each [place] on nasal 00 nostril Medical spray daily. Branch fluticasone 2016- Yes [id number] 2{spray Use 2 Univers 50 9-15 } Sprays in ity of mcg/actuati 00:00: each [place] on nasal 00 nostril Medical spray daily. Branch fluticasone 2016- Yes [id number] 2{spray Use 2 Univers 50 9-15 } Sprays in ity of mcg/actuati 00:00: each [place] on nasal 00 nostril Medical spray daily. Gela fluticasone 2016- Yes [id number] 2{spray Use 2 Univers 50 9-15 } Sprays in ity of mcg/actuati 00:00: each [place] on nasal 00 nostril Medical spray daily. [place] fluticasone 2016- Yes [id number] 2{spray Use 2 Univers 50 9-15 } Sprays in ity of mcg/actuati 00:00: each [place] on nasal 00 nostril Medical spray daily. Gela fluticasone 2016- Yes [id number] 2{spray Use 2 Univers 50 9-15 } Sprays in ity of mcg/actuati 00:00: each [place] on nasal 00 nostril Medical spray daily. Branch fluticasone 2017- Yes [id number] 2{spray Use 2 Univers 50 9-15 } Sprays in ity of mcg/actuati 00:00: each [place] on nasal 00 nostril Medical spray daily. Branch fluticasone 2017-0 Yes [id number] 2{spray Use 2 Univers 50 9-15 } Sprays in ity of mcg/actuati 00:00: each [place] on nasal 00 nostril Medical spray daily. Branch Vital Signs Vital Name Observation Time Observation Value Comments Source Systolic blood 2022-02-13 140 mm[Hg] [place] Seybol d pressure 20:32:00 Diastolic blood 2022-02-13 83 mm[Hg] [place] Kwongyesenia ld pressure 20:32:00 Heart rate 2022-02-13 83 /min [place] Neves 20:32:00 Body temperature 2022-02-13 37.28 Donita [place] Kwong old 20:32:00 Respiratory rate 2022-02-13 14 /min [place] Kwong old 20:32:00 Body height 2022-02-13 152.4 cm [place] Neves 20:32:00 Body weight 2022-02-13 72.303 kg [place] Neves 20:32:00 BMI 2022-02-13 31.13 kg/m2 [place] Neves 20:32:00 Oxygen saturation 2022-02-13 98 /min [place] Vaughn jose ramon in Arterial blood 20:32:00 by Pulse oximetry Systolic blood 2021-05-28 161 mm[Hg] University of pressure 14:41:00 [facility] Diastolic blood 2021-05-28 105 mm[Hg] University o f pressure 14:41:00 [facility] Body weight 2021-05-28 73.029 kg University of 14:41:00 [facility] BMI 2021-05-28 31.44 kg/m2 University of 14:41:00 [facility] Systolic blood 2020-03-06 140 mm[Hg] forgot her meds University of pressure 17:23:00 today [facility] Diastolic blood 2020-03-06 90 mm[Hg] forgot her meds Universit y of pressure 17:23:00 today [facility] Body weight 2020-03-06 72.122 kg University of 17:23:00 [facility] BMI 2020-03-06 31.05 kg/m2 University of 17:23:00 [facility] Systolic blood 2019-05-25 122 mm[Hg] University of pressure 14:59:00 [facility] Diastolic blood 2019-05-25 77 mm[Hg] University o f pressure 14:59:00 [facility] Heart rate 2019-05-25 92 /min University of 14:59:00 [facility] Respiratory rate 2019-05-25 19 /min University of 14:59:00 [facility] Body height 2019-05-25 152.4 cm University of 14:59:00 [facility] Body weight 2019-05-25 71.487 kg [facility] 14:59:00 [facility] BMI 2019-05-25 30.78 kg/m2 [facility] 14:59:00 [facility] Oxygen saturation 2019-05-25 98 /min [facility] in Arterial blood 14:59:00 [facility] [place] by Pulse oximetry Branch Systolic blood 2019-05-25 124 mm[Hg] [facility] pressure 13:15:00 [facility] Diastolic blood 2019-05-25 80 mm[Hg] [facility] o f pressure 13:15:00 [facility] Heart rate 2019-05-25 60 /min [facility] 13:15:00 [facility] Body weight 2019-05-25 71.668 kg [facility] 13:15:00 [facility] BMI 2019-05-25 30.86 kg/m2 [facility] 13:15:00 [facility] Procedures Procedure Date / Time Performed Performing Clinician [facility] e ASSIGNMENT OF BENEFITS 2020-03-06 17:18:57 Doctor Unassigned, No [facility] BI SCREENING MAMMOGRAM 2019-05-25 16:44:[address] [facility] BILATERAL Medical [place] CONSENT/REFUSAL FOR 2019-05-25 16:13:14 [facility] Branch TREATMENT ASSIGNMENT OF BENEFITS 2019-05-25 16:13:01 Doctor Unassigned, No [facility] Medical [place] Encounters Start End Encounter Admission Attending Care Care Encounter Source Date/Time Date/Time Type Type Clinicians Facility Department ID 2022-06-13 2022-06-13 Outpatient CHARLOTTE NICK [id number] [place] 16:15:00 16:15:00 SELMA Kwongol jody 2022-03-13 2022-03-13 Outpatient LAB90 CHARLOTTE MCNEILL [id number] [place] 14:00:00 14:00:00 Seybol d 2022-03-13 2022-03-13 Office Branden Nick 1.2.840.114 [id number] [place] 13:30:00 13:45:00 Visit Selma Rose [id number] Se vargas 1.2.7.2.686 [id number] 2022-02-15 2022-02-15 Outpatient LAB90 CHARLOTTE MCNEILL [id number] [place] 08:10:00 08:10:00 Seybol d 2022-02-13 2022-02-13 Office Branden Nick 1.2.840.114 [id number] [place] 15:30:00 16:00:00 Visit Selma Rose [id number] Se ybold 1.2.7.2.686 [id number] 2021-05-28 2021-05-[address] [facility] [id number] Univers 10:00:00 10:00:00 SANTI [id number] [facility] 2021-05-28 2021-05-[address] [facility] [id number] Univers 10:00:00 10:00:00 SANTI [facility] 2021-05-28 2021-05-28 [facility] 1.2.840.114 [id number] Univers 09:30:28 09:45:28 Visit [facility] [id number] it y of [place] [id number] Noel as Hector?Blea [phone] [facility] kney [address] [place] [address] Office [facility] 2021-03-30 2021-03-30 [facility] [facility] [id number] Univers 00:00:00 00:00:00 [facility] [id number] it y of [place] [id number] Noel as Professio [phone] [facility] nal [address] [place] [address] One 2021-03-30 2021-03-30 [facility]ill [facility] 1.2.840.114 [id number] Univers 00:00:00 00:00:00 [facility] [id number] it y of [place] [id number] Noel as Professio [phone] [place] dicor nal [address] [place] [address] One 2021-03-27 2021-03-27 [facility] 1.2.840.114 [id number] Univers 00:00:00 00:00:00 [facility] [id number] it y of [place] [id number] Noel as Professio [phone] Va dicor nal 044 [facility] 2021-02-05 2021-02-[address] [facility] 1.2.840.114 [id number] Univers 00:00:00 00:00:00 [facility] [id number] it y of [place] [id number] Noel as Professio [phone] [facility] nal [address] [place] [address] Office [facility] One 2020-12-14 2020-12-14 Patient Orion [facility] 1.2.840.114 [id number] Univers 00:00:00 00:00:00 Outreach Hakan PRIMARY [id number] i ty of Luan [facility] 4.2.7.2.686 [place] [phone] [facility] [address] 2020-11-27 2020-11-27 [facility] [facility] 1.2.840.114 [id number] Univers 00:00:00 00:00:00 [facility] [id number] it y of [place] [id number] Noel as Professio [phone] Va dicor nal [address] [place] [address] Office [facility] One 2020-08-31 2020-08-31 [address] [facility] 1.2.840.114 [id number] Univers 00:00:00 00:00:00 Santi [facility] [id number] it y of [place] [id number] Noel as Professio [phone] Va dical nal [address] [place] [address] Office [facility] One 2020-05-22 2020-05-22 [address] 1.2.840.114 [id number] Univers 00:00:00 00:00:00 Santi [facility] [id number] it y of [place] [id number] Noel as Professio [phone] Va dical nal [address] [place] [address] Office [facility] One 2020-03-06 2020-03-06 Office [facility] 1.2.840.114 [id number] Univers 12:22:52 12:37:52 Visit Santi Parker [id number] i ty of [place] 4.2.7.2.686 [place] Profess[place] [phone] [facility] 044 [facility] 2020-03-06 2020-03-[address] [facility] [id number] Univers 12:15:00 12:15:00 SANTI [id number] ity [facility] 2020-03-06 2020-03-[address] [facility] [id number] Univers 12:15:00 12:15:00 SANTI ity [facility] 2020-03-06 2020-03-06 Orders Doctor NICHOLAS 1.2.840.114 [id number] Univers 00:00:00 00:00:00 Only Unassigned, KUNAL [id number] ity of [facility] 4.2.7.2.686 Noel as [phone] [address] 2020-02-15 2020-02-15 [facility] 1.2.840.114 [id number] Univers 00:00:00 00:00:00 [facility] [id number] it y of [place] [id number] Noel as Professio [phone] [address] 2019-12-28 2019-12-28 [facility] 1.2.840.114 [id number] Univers 00:00:00 00:00:00 [facility] [id number] it y of [place] [id number] Noel as Professio [phone] [address] 2019-06-08 2019-06-08 [facility] [id number] Univers 00:00:00 00:00:00 Addie Parker [id number] ity of [place] [id number] [place] Profess[place] [phone] [facility] 059 [facility] 2019-06-01 2019-06-01 [facility] 1.2.840.114 [id number] Univers 00:00:00 00:00:00 [facility] [id number] it y of [place] [id number] Noel as Professio [phone] Va dical nal [address] One 2019-05-27 2019-05-27 Telephone [facility] [id number] Univers 00:00:00 00:00:00 Santi Jimenez [id number] it y of [place] [id number] Noel as Professio [phone] Va dical nal [address] One 2019-05-25 2019-05-25 [facility] 1.2.840.114 [id number] Univers 11:19:00 23:59:00 Encounter Santi Parker [id number] ity of [place] 4.2.7.2.686 [place] [phone] [facility] [address] 2019-05-25 2019-05-25 [facility] [id number] Univers 10:00:00 10:45:11 SENDIL ity of [facility] 2019-05-25 2019-05-25 Office [facility] 1.2.840.114 [id number] Univers 09:38:42 10:45:11 Visit Addie Turner Elena [id number] ity of [place] 4.2.7.2.686 [place] Profess[place] [phone] [facility] 059 [facility] 2019-05-25 2019-05-25 Office [facility] 1.2.840.114 [id number] Univers 08:10:54 08:44:01 Visit Santi [facility] [id number] it y of [place] [id number] Noel as Professio [phone] Va dical nal [address] One 2019-05-25 2019-05-25 Orders Doctor PETERSON 1.2.840.114 [id number] Univers 00:00:00 00:00:00 Only Unassigned, KUNAL 350.1.13.10 ity of [facility] 4.2.7.2.686 Noel as [phone] [facility] 009 Branch 2019-05-18 2019-05-[address] TXMICHAEL 1.2.840.114 [id number] Univers 00:00:00 00:00:00 [facility] [id number] it y of [place] [id number] Noel as Professio [phone] Va dical nal [address] One 2019-05-03 2019-05-[address] TXMICHAEL 1.2.840.114 [id number] Univers 00:00:00 00:00:00 [facility] [id number] it y of [place] [id number] Noel as Professio [phone] Va dical nal [address] Building One 2019-04-27 2019-04-[address] TXMICHAEL 1.2.840.114 [id number] Univers 00:00:00 00:00:00 [facility] [id number] it y of [place] [id number] Noel as Professio [phone] Va dical nal [address] Building One Results Test Description Test Time Test Comments Results Result [facility] e Comments BI SCREENING 2019-04-30 Examination:BI Universi ty of MAMMOGRAM [address] [facility] BILATERAL 17:21:45 BILATERAL Branch History:Patient is 49 year old and is seen for:?Screen.?Hormon e history includes other. Surgical history includes hysterectomy. No relevant medical history has been documented for this patient. Computer-aided detection (CAD) utilized. Comparisons : None available Findings:The breasts have scattered areas of fibroglandular density. LeftThere is a 6 mm intramammary lymph node seen in the upper outer quadrant of the left breast in the posterior depth, 11 cm from the nipple. RightThere is no evidence of suspicious masses, calcifications, or other abnormal findings. Impression:No signs of malignancy. However, annual evaluations should be encouraged. Recommendation:Margarita martin mammographic follow-up - Left BI-RADS Category: Left 2 - Benign
--- NOTE | 2022-06-04 08:23 | RAD REPORT ---
EXAM DESCRIPTION: CT - Head Brain Wo Cont - 06/04/2022 8:16 am CLINICAL HISTORY: dizziness, vertigo, fall COMPARISON: Head Brain Wo Cont dated 03/10/2019 TECHNIQUE: Axial 5 mm thick images of the head were obtained without IV contrast. All CT scans are performed using dose optimization technique as appropriate and may include automated exposure control or mA/KV adjustment according to patient size. FINDINGS: No intracranial hemorrhage, mass, edema or shift of mid-line structures. No acute infarcti on changes seen. No abnormal extra-axial fluid collections. Ventricles are normal. Mastoid air cells and visualized portions of the paranasal sinuses are clear. No acute bony findings. No significant change from comparison. IMPRESSION: Negative non-contrast CT head examination.
--- NOTE | 2022-06-04 08:53 | RAD REPORT ---
EXAM DESCRIPTION: MRI - Brain Wo Cont - 06/04/2022 8:21 am CLINICAL HISTORY: sudden onset dizziness and vertigo, HTN COMPARISON: Head Brain Wo Cont dated 06/04/2022 TECHNIQUE: Sagittal T1-weighted images were obtained along with axial PD, heavily T2-weighted and T2 -FLAIR images. Axial DWI and ADC mapping sequences were also obtained along with coronal heavily T2-w eighted images. FINDINGS: No intracranial hemorrhage, mass or acute infarction. There is no edema or shift of midlin e structures. No extra-axial fluid collections. Diaz-matter/white matter junction is preserved. Signa l voids are seen as a normal finding in the major intracranial vessels. Tortuosity of the vertebrobas ilar vasculature noted. No globe or orbital content abnormality seen. No sella or supra sella mass. No tonsillar ectopia. Mastoid air cells and paranasal sinuses are clear. IMPRESSION: Negative non-contrast MRI of the Brain for acute or significant finding.
[2022-06-04 09:07] LABS: Absolute Lymphocytes (CBC) 1.1 K/uL (0.7-4.9); Hematocrit 45.8 % (36.0-45.0); MCV 101.9 fL (80-100); MPV 7.4 fL (7.6-11.3); RBC Red Blood Cell Count 4.49 M/uL (3.86-4.86)
[2022-06-04 09:27] LABS: Potassium 3.7 mmol/L (3.5-5.1); Troponin High Sensitivity 7.8 pg/mL (<58.9)
--- NOTE | 2022-06-04 09:33 | RAD REPORT ---
EXAM DESCRIPTION: RAD - Chest Single View - 06/04/2022 9:26 am CLINICAL HISTORY: CHEST PAIN COMPARISON: Portable 03/10/2019 TECHNIQUE: AP portable chest image was obtained 06/04/2022 9:26 am . FINDINGS: Lung volumes are low. No focal mass or consolidation. Interstitial pattern is not clearly different from comparison. Heart and vasculature are normal. No measurable pleural effusion and no pn eumothorax. No acute bony abnormality seen. No acute aortic findings suspected. IMPRESSION: No acute cardiopulmonary process. No significant change from comparison study.
--- NOTE | 2022-06-04 09:36 | ER ---
Nurse's Notes [facility] Name: Shaista Cottrell Age: 52 yrs Sex: Female : 1970 Arrival Date: 06/04/2022 Time: 07:38 Bed 7 Private MD: Diagnosis: Essential (primary) hypertension;Chest pain, unspecified;Anxiety disorder, unspecified Presentation: 06/04 07:49 Chief complaint: Patient states: Dizziness, spots in vision began at 6 am, then she ll1 fell trying to get out of bed. BP 180/121 at home. Hasn't taken her BP Pill in 3 days. CP and MURGUIA began on the way here. Coronavirus screen: Vaccine status: Patient reports receiving the 1st dose of the Covid vaccine. Client denies travel out of the [place] in the last 14 days. headache, Client presents with at least one sign or symptom that may indicate coronavirus-19. Standard/surgical mask placed on the client. Ebola Screen: Patient denies travel to an Ebola-affected area in the 21 days before illness onset. Initial Sepsis Screen: Does the patient meet any 2 criteria? HR > 90 bpm. No. Patient's initial sepsis screen is negative. Does the patient have a suspected source of infection? No. Patient's initial sepsis screen is negative. Risk Assessment: Do you want to hurt yourself or someone else? Patient reports no desire to harm self or others. Onset of symptoms was June 04, 2022. 07:49 Method Of Arrival: Wheelchair ll1 07:49 Acuity: CAROLE 3 ll1 Triage Assessment: 07:51 General: Appears distressed, Behavior is cooperative, appropriate for age. Pain: ll1 Complains of pain in head Pain currently is 10 out of 10 on a pain scale. Quality of pain is described as aching, throbbing, Pain began 2 hours ago. Neuro: Reports dizziness, headache. Cardiovascular: Reports chest pain. Historical: - Allergies: 07:48 Losartan; ll1 - PMHx: 07:48 Anxiety; Hypertension; ll1 - PSHx: 07:48 hysterectomy; ll1 - Immunization history:: Client reports receiving the Jonn \T\ Jonn single-dose vaccine. - Social history:: Smoking status: Patient denies any tobacco usage or history of. - Family history:: not pertinent. - Hospitalizations: : No recent hospitalization is reported. Screenin:45 Abuse screen: Denies threats or abuse. Denies injuries from another. Nutritional bp screening: No deficits noted. Tuberculosis screening: No symptoms or risk factors identified. Fall Risk None identified. Assessment: 07:50 General: SEE TRIAGE NOTE. bp 08:45 Reassessment: PT RETURNED FROM RAD. bp 10:03 Reassessment: DC HOME AMBULATORY. bp Vital Signs: 07:49 BP 181 / 103; Pulse 97; Resp 17; Temp 99.3; Pulse Ox 98% on R/A; Weight 72.57 kg; ll1 Height 5 ft. 0 in. (152.40 cm); Pain 10/10; 08:51 BP 166 / 93; Pulse 88; Resp 16; Pulse Ox 99% ; bp 10:03 BP 157 / 97; Pulse 96; Resp 16; Pulse Ox 98% ; bp 07:49 Body Mass Index 31.25 (72.57 kg, 152.40 cm) ll1 ED Course: 07:38 Patient arrived in ED. rg4 07:48 Arm band placed on Patient placed in an exam room, on a stretcher. ll1 07:50 Rober Orellana MD is Attending Physician. rn 07:51 Triage completed. ll1 08:01 Estrada Denise, YOUSIF is Primary Nurse. bp 08:18 CT Head Brain wo Cont In Process Unspecified. EDMS 08:23 Brain Wo Cont MRI In Process Unspecified. EDMS 08:45 Patient has correct armband on for positive identification. Bed in low position. Call bp light in reach. Side rails up X2. Client placed on continuous cardiac and pulse oximetry monitoring. NIBP monitoring applied. 08:50 Inserted saline lock: 22 gauge in right antecubital area, using aseptic technique. bp Blood collected. 09:27 XRAY Chest (1 view) In Process Unspecified. EDMS 10:03 No provider procedures requiring assistance completed. IV discontinued, intact, bp bleeding controlled, No redness/swelling at site. Pressure dressing applied. Patient maintains SpO2 saturation greater than 95% on room air. Administered Medications: No medications were administered Medication: 08:45 VIS not applicable for this client. bp Outcome: 09:35 Discharge ordered by . rn 10:03 Discharged to home ambulatory, with family. bp 10:03 Condition: stable 10:03 Discharge instructions given to patient, Instructed on discharge instructions, follow up and referral plans. Demonstrated understanding of instructions, follow-up care. 10:04 Patient left the ED. bp Signatures: Dispatcher [employer] EDRober Leigh MD MD rn Garcia, Rubi rg4 Estrada Denise RN RN Twan Billings RN RN ll1
--- NOTE | 2022-06-04 09:37 | EDPHYS ---
Physician Documentation [facility] Name: Shaista Cottrell Age: 52 yrs Sex: Female : 1970 Arrival Date: 06/04/2022 Time: 07:38 Bed 7 Private MD: ED Physician Rober Orellana HPI: 06/04 08:32 This 52 yrs old Female presents to ER via Wheelchair with complaints of high rn blood pressure. 08:32 Pt reports out of BP meds over the weekend, woke up this AM with dizziness and feeling rn unsteady, began immediately when waking up. On her way here began to feel anxious with chest pain and sob. Chest pain and sob already getting better. Dizziness better but still present. No abd pain. No focal neuro complaint. . Onset: The symptoms/episode began/occurred this morning. Severity of symptoms: At their worst the symptoms were moderate in the emergency department the symptoms have improved. The patient has not experienced similar symptoms in the past. The patient has been recently seen by a physician:. Historical: - Allergies: 07:48 Losartan; ll1 - PMHx: 07:48 Anxiety; Hypertension; ll1 - PSHx: 07:48 hysterectomy; ll1 - Immunization history:: Client reports receiving the Jonn \T\ Jonn single-dose vaccine. - Social history:: Smoking status: Patient denies any tobacco usage or history of. - Family history:: not pertinent. - Hospitalizations: : No recent hospitalization is reported. ROS: 08:32 Constitutional: Negative for fever, chills, and weight loss, Eyes: Negative for injury, rn pain, redness, and discharge, Neck: Negative for injury, pain, and swelling, Cardiovascular: Negative for palpitations, and edema, Respiratory: Negative for cough, wheezing, and pleuritic chest pain, Abdomen/GI: Negative for abdominal pain, nausea, vomiting, diarrhea, and constipation, Back: Negative for injury and pain, MS/Extremity: Negative for injury and deformity, Skin: Negative for injury, rash, and discoloration, Neuro: Negative for headache, weakness, numbness, tingling, and seizure. Exam: 08:07 ECG was reviewed by the Attending Physician. rn 08:32 Constitutional: This is a well developed, well nourished patient who is awake, alert, rn tearful and seems anxious Head/Face: Normocephalic, atraumatic. Eyes: Pupils equal round and reactive to light, extra-ocular motions intact. Lids and lashes normal. Conjunctiva and sclera are non-icteric and not injected. Cornea within normal limits. Periorbital areas with no swelling, redness, or edema. Neck: Trachea midline. Supple, full range of motion without nuchal rigidity, or vertebral point tenderness. No Meningismus. Cardiovascular: Tachycardic, regular. No pulse deficits. Respiratory: No increased work of breathing, no retractions or nasal flaring. Abdomen/GI: Soft, non-tender Skin: Warm, dry MS/ Extremity: Pulses equal, no cyanosis. Neurovascular intact. Full, normal range of motion. Equal circumference. Neuro: Awake and alert, GCS 15, oriented to person, place, time, and situation. Cranial nerves II-XII grossly intact. Motor strength 5/5 in all extremities. Sensory grossly intact. Cerebellar exam normal. Vital Signs: 07:49 BP 181 / 103; Pulse 97; Resp 17; Temp 99.3; Pulse Ox 98% on R/A; Weight 72.57 kg; ll1 Height 5 ft. 0 in. (152.40 cm); Pain 10/10; 08:51 BP 166 / 93; Pulse 88; Resp 16; Pulse Ox 99% ; bp 10:03 BP 157 / 97; Pulse 96; Resp 16; Pulse Ox 98% ; bp 07:49 Body Mass Index 31.25 (72.57 kg, 152.40 cm) ll1 MDM: 07:50 Patient medically screened. rn 08:48 ED course: headache resolved, dizziness resolved, BP improved to 160/98, all without rn intervention. . 09:33 Differential Diagnosis HTN, vertigo, anxiety. rn 09:34 Data reviewed: vital signs, nurses notes, lab test result(s), EKG, radiologic studies, rn CT scan, MRI, and as a result, I will discharge patient. Counseling: I had a detailed discussion with the patient and/or guardian regarding: the historical points, exam findings, and any diagnostic results supporting the discharge/admit diagnosis, lab results, radiology results, the need for outpatient follow up, to return to the emergency department if symptoms worsen or persist or if there are any questions or concerns that arise at home. Response to treatment: the patient's symptoms have markedly improved after treatment, and as a result, I will discharge patient. ED course: Pt has already called for refill, will cook pickled meat BP meds on way home. Return precautions given and understood. . 06/04 08:05 Order name: Basic Metabolic Panel; Complete Time: 09:33 rn 06/04 08:05 Order name: CBC with Diff; Complete Time: 09:33 rn 06/04 08:05 Order name: NT PRO-BNP; Complete Time: 09:33 rn 06/04 08:05 Order name: Troponin HS; Complete Time: 09:33 rn 06/04 08:05 Order name: XRAY Chest (1 view); Complete Time: 09:36 rn 06/04 08:05 Order name: CT Head Brain wo Cont; Complete Time: 09:33 rn 06/04 08:05 Order name: EKG; Complete Time: 08:06 rn 06/04 08:05 Order name: Cardiac monitoring; Complete Time: 08:06 rn 06/04 08:05 Order name: EKG - Nurse/Tech; Complete Time: 08:06 rn 06/04 08:05 Order name: IV Saline Lock; Complete Time: 08:51 rn 06/04 08:05 Order name: Labs collected and sent; Complete Time: 08:51 rn 06/04 08:05 Order name: O2 Per Protocol; Complete Time: 08:06 rn 06/04 08:05 Order name: O2 Sat Monitoring; Complete Time: 08:06 rn 06/04 08:05 Order name: Brain Wo Cont MRI; Complete Time: 09:33 rn EC:07 Rate is 105 beats/min. Rhythm is regular. QRS is negative in leads I, aVF. WI interval rn is normal. QRS interval is normal. QT interval is normal. No Q waves. T waves are Normal. No ST changes noted. Clinical impression: Sinus tachycardia. Interpreted by me. Reviewed by me. Administered Medications: No medications were administered Disposition Summary: 06/04/22 09:35 Discharge Ordered Location: Home rn Problem: new rn Symptoms: have improved rn Condition: Stable rn Diagnosis - Essential (primary) hypertension rn - Chest pain, unspecified rn - Anxiety disorder, unspecified rn Followup: rn - With: Private Physician - When: As needed - Reason: Recheck today's complaints, Re-evaluation by your physician Discharge Instructions: - Discharge Summary Sheet rn - Nonspecific Chest Pain, Adult rn - Hypertension, Adult rn Forms: - Medication Reconciliation Form rn - Thank You Letter rn - Antibiotic furnace setter - Prescription Opioid Use rn - Work release form em1 Signatures: Dispatcher [employer] Rober Hernandez MD MD rn Lewis, Lynsay, RN RN 1
[2022-06-04 11:17] VITALS: TEMP 99.3
[2022-06-04 11:29] VITALS: BP 157/97; O2SAT 98
--- NOTE | 2022-06-05 12:51 | EKG ---
Test Date: 2022-06-04 Test Time: 08:03:11 Nougat Cutter Machine: LML MEASUREMENT RESULTS: Intervals: Rate: 105 FL: 156 QRSD: 80 QT: 344 QTc: 454 [place]: P: 25 FL: 156 QRS: 253 T: 31 INTERPRETIVE STATEMENTS: Sinus tachycardia Right superior axis deviation Pulmonary disease pattern Abnormal ECG Compared to ECG 06/04/2022 08:01:47 No significant changes Electronically Signed On 06-05-22 12:49:42 CDT by Zeeshan Rhodes
--- NOTE | 2022-06-05 12:51 | EKG ---
Test Date: 2022-06-04 Test Time: 08:01:47 Shipping Lead Person: LML MEASUREMENT RESULTS: Intervals: Rate: 103 LA: 154 QRSD: 86 QT: 346 QTc: 453 [place]: P: 28 LA: 154 QRS: 248 T: 42 INTERPRETIVE STATEMENTS: Sinus tachycardia Right superior axis deviation Pulmonary disease pattern Abnormal ECG Compared to ECG 03/10/2019 11:10:16 Right superior axis now present Sinus bradycardia no longer present T-wave abnormality no longer present Possible ischemia no longer present Electronically Signed On 06-05-22 12:49:43 CDT by Zeeshan Rhodes
== END 2022-06-04 10:04 | disposition home or self-care (01) ==
LOC: ER 07:36
DX: I10 Essential (primary) hypertension (principal); R07.9 Chest pain, unspecified; F41.9 Anxiety disorder, unspecified; Z88.8 Allergy status to other drugs, medicaments and biological substances
CPT/HCPCS: 36415; 70450; 70551; 71045; 80048; 83880; 84484; 85025; 93005; 99284